=== PATIENT | male | born 1940 | race Caucasian/White ===

== ENCOUNTER → 2018-02-15 | Outpatient (CLI) | payer MEDICARE ==
[~2018-02-15] MED LIST: AMLO5TAB2; AMLO5TAB2 PO; ASP325TEC PO; ATEN25TA PO; ATOR20TA66; ATR20T PO; CLOP75TA; METO-370; NIFE30TA PO; PANT40TA3; PRAS10TA6; TAMS0.4C2; [UNRECOGNIZED DRUG - OTHER]
--- NOTE | 2018-02-15 14:29 | Diagnostic Imaging Report ---
Indication: Bilateral leg pain. IMPRESSION: Segmental pressures bilateral lower extremities was performed. Ankle brachial indices are 1.15 on the right? 1.09 on the left. Dictated by: Dictated on workstation # [id number]
== END ==
LOC: RAD 08:53
PROVIDERS: ATTEND Internal Medicine Interventional Cardiology
DX: M79.604 Pain in right leg (principal); I25.10 Atherosclerotic heart disease of native coronary artery without angina pectoris; I10 Essential (primary) hypertension; E78.5 Hyperlipidemia, unspecified; I71.4 Abdominal aortic aneurysm, without rupture; Z72.0 Tobacco use
CPT/HCPCS: 93922

== ENCOUNTER → 2018-05-17 | Outpatient (CLI) | payer MEDICARE ==
[~2018-05-17] MED LIST changes: -AMLO5TAB2; +AMLO5TAB7; +IOHEXOL 350 MG/ML 100 ML (OMNIPAQUE 350) VIAL IV ONE; +NS 250 ML (IVPB) BAG IV ONE; +RECEIVED CONTRAST (Hold Metformin) IV SCH
[2018-05-17 08:38] LABS: CREATININE SERUM 1.25 MG/DL (0.60-1.30)
--- NOTE | 2018-05-17 10:21 | Diagnostic Imaging Report ---
PROCEDURE: CT angiography of the abdomen with and without contrast. TECHNIQUE: Multiple contiguous axial images were obtained through the abdomen and pelvis after administration of intravenous contrast. MIP reconstructions were made. INDICATION: Aortic stent graft, study ordered for followup however have no previous for comparison. The bifurcated device proximally anchored below the takeoff of the opacified renal arteries and distally extending into the bilateral common iliacs. The device is patent without evidence for endoleak. The peripherally calcified aneurysmal sac measures 6.7 cm in transverse dimension. No perianeurysmal hemorrhage or edema. Lower thoracic aorta is atherosclerotic, tortuous and nonacute. Stenosis at the takeoff of the celiac results in about 50% proximal stenosis. There is mild narrowing of the takeoff of the SMA well less than 50%. There is a patent left renal artery stent with the main right renal artery stenosed by at least 70% at its takeoff and there appears to be an accessory artery to the right renal lower pole small but nonfocal. Calcifications of the right adrenal gland likely reflecting sequelae of a remote inflammatory or hemorrhagic insult, the adrenals otherwise negative. There are bilateral renal cysts greater right without complexity, no enhancing or suspicious renal mass. There are no findings of acute solid or hollow visceral end organ ischemia. There is no ascites, abscess, hematoma or fluid collection. Note is made of gallstones, the liver unremarkable. The spleen and pancreas negative. IMPRESSION: Patent bifurcated stent graft device with no endoleak or aneurysmal rupture, calcified thrombosed sac dimensions above. 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 Renal cyst and cholelithiasis noted. Old calcifications in the right adrenal incidental. Dictated by: Dictated on workstation # [id number]
== END ==
LOC: RAD 08:04
PROVIDERS: ATTEND Internal Medicine Interventional Cardiology
DX: I71.4 Abdominal aortic aneurysm, without rupture (principal); I70.0 Atherosclerosis of aorta; I70.1 Atherosclerosis of renal artery; E27.49 Other adrenocortical insufficiency; K80.20 Calculus of gallbladder without cholecystitis without obstruction; N28.1 Cyst of kidney, acquired; Z95.820 Peripheral vascular angioplasty status with implants and grafts
CPT/HCPCS: 36415; 74175; 82565; 84520

== ENCOUNTER → 2019-01-07 | Outpatient (CLI) | payer MEDICARE ==
[~2019-01-07] MED LIST changes: -AMLO5TAB7; +AMLO5TAB9; -IOHEXOL 350 MG/ML 100 ML (OMNIPAQUE 350) VIAL IV ONE; -NS 250 ML (IVPB) BAG IV ONE; -RECEIVED CONTRAST (Hold Metformin) IV SCH
[2019-01-07 12:31] LABS: BASOPHILS % (AUTO) 1 % (0-10); EOSINOPHILS # (AUTO) 0.1 10^3/uL (0.0-0.3); EOSINOPHILS % (AUTO) 2 % (0-10); HEMATOCRIT 40 % (40-54); HEMOGLOBIN 13.5 G/DL (13.3-17.7); LYMPHOCYTES # (AUTO) 1.6 X 10^3 (1.0-4.0); LYMPHOCYTES % (AUTO) 25 % (12-44); MEAN CORPUSCULAR HEMOGLOBIN 33 PG (25-34); MEAN CORPUSCULAR HGB CONC 34 G/DL (32-36); MEAN CORPUSCULAR VOLUME 98 FL (80-99); MEAN PLATELET VOLUME 9.9 FL (7.4-10.4); MONOCYTES # (AUTO) 0.6 X 10^3 (0.0-1.0); MONOCYTES % (AUTO) 9 % (0-12); NEUTROPHILS # (AUTO) 4.2 X 10^3 (1.8-7.8); NEUTROPHILS % (AUTO) 64 % (42-75); PLATELET COUNT 136 10^3/uL (130-400); WHITE BLOOD COUNT 6.6 10^3/uL (4.3-11.0)
[2019-01-07 12:47] LABS: ALBUMIN 4.1 GM/DL (3.2-4.5); BILIRUBIN,TOTAL 0.5 MG/DL (0.1-1.0); CALCIUM 9.7 MG/DL (8.5-10.1); CREATININE SERUM 1.48 MG/DL (0.60-1.30); POTASSIUM 4.2 MMOL/L (3.6-5.0); TOTAL PROTEIN 7.5 GM/DL (6.4-8.2)
--- NOTE | 2019-01-07 13:21 | Diagnostic Imaging Report ---
Indication: Cough, fatigue and weight loss. Time of exam: 12:32 PM Comparison is made with prior chest from 07/16/2016. The heart size is stable. There is some ectasia and tortuosity of the descending thoracic aorta. The lungs are clear. The pulmonary vascularity is normal. No infiltrate, effusion or pneumothorax is seen. Impression: No acute cardiopulmonary process is detected. Dictated by: Dictated on workstation # [id number]
--- NOTE | 2019-01-07 13:25 | Diagnostic Imaging Report ---
Indication: Fatigue, weight loss, constipation. Aortic stent graft device is present. The bowel gas pattern is normal. There is no abnormal fecal loading. 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 There are atherosclerotic vascular calcifications. Impression: No acute-appearing abnormality. Dictated by: Dictated on workstation # [id number]
== END ==
LOC: LAB 11:50
PROVIDERS: ATTEND Family Medicine
DX: R53.83 Other fatigue (principal); R63.4 Abnormal weight loss; K59.00 Constipation, unspecified
CPT/HCPCS: 36415; 71046; 74018; 80053; 84443; 85025

== ENCOUNTER → 2019-01-28 | Outpatient (CLI) | payer MEDICARE ==
[~2019-01-28] MED LIST changes: +HOLD METFORMIN - RECEIVED CONTRAST 20 ML VIAL IV SCH; +IOHEXOL 350 MG/ML 100 ML (OMNIPAQUE 350) VIAL IV ONE; +NS 100 ML (IVPB) BAG IV ONE
[2019-01-28 09:17] LABS: CREATININE SERUM 1.48 MG/DL (0.60-1.30)
--- NOTE | 2019-01-28 11:03 | Diagnostic Imaging Report ---
PROCEDURE: CT angiography of the abdomen with and without contrast. TECHNIQUE: Multiple contiguous axial images were obtained through the abdomen and pelvis after administration of intravenous contrast. MIP reconstructions were made. Auto Exposure Controls were utilized during the CT exam to meet ALARA standards for radiation dose reduction. INDICATION: Aortic aneurysm repair 3 to 4 years ago. Correlation is made with prior CT from 05/17/2018. FINDINGS: Lung bases are clear. Liver is unremarkable. Small stones within the gallbladder are noted. There is no biliary ductal dilatation. The pancreas and spleen are unremarkable. There are some calcifications in the right adrenal gland. Large cyst involving the right kidney are again noted. Left kidney is unremarkable. Infrarenal abdominal aortic aneurysm treated with bifurcated stent graft is again noted. Both iliac limbs of the stent graft appear to be patent. Excluded aneurysm sac dimension is stable approximately 6.7 cm transverse. Aneurysm sac wall is calcified. There are no definite findings to suggest endoleak. No dickson-aortic fluid collection to suggest rupture or leakage is seen. Visualized bowel loops are normal caliber. There is no ascites. IMPRESSION: 1. Abdominal aortic aneurysm treated with aortic stent graft. Aneurysm sac dimensions are stable since exam from May 2018. There are no findings to suggest endoleak. 2. Cholelithiasis. 3. Right renal cysts. Dictated by: Dictated on workstation # [id number]
== END ==
LOC: RAD 08:37
PROVIDERS: ATTEND Internal Medicine Interventional Cardiology
DX: I71.4 Abdominal aortic aneurysm, without rupture (principal); K80.20 Calculus of gallbladder without cholecystitis without obstruction; N28.1 Cyst of kidney, acquired; Z95.828 Presence of other vascular implants and grafts
CPT/HCPCS: 36415; 74175; 82565; 84520

== ENCOUNTER → 2020-01-28 | Outpatient (CLI) | payer MEDICARE ==
[~2020-01-28] MED LIST changes: -HOLD METFORMIN - RECEIVED CONTRAST 20 ML VIAL IV SCH; -IOHEXOL 350 MG/ML 100 ML (OMNIPAQUE 350) VIAL IV ONE; -METO-370; +METO50TA7; -NS 100 ML (IVPB) BAG IV ONE
[2020-01-28 09:34] LABS: CREATININE SERUM 1.81 MG/DL (0.60-1.30)
--- NOTE | 2020-01-28 11:13 | Diagnostic Imaging Report ---
PROCEDURE: US carotid duplex, bilateral. TECHNIQUE: Multiple real-time grayscale images were obtained over the carotid arteries in various projections, bilaterally. Additional spectral analysis and color Doppler duplex images were also obtained. INDICATION: Carotid artery stenosis, TIA. COMPARISON: None available. FINDINGS: Right carotid circulation: The right common carotid artery is normal in caliber, and there is no significant stenosis. Peak systolic velocity in the right common carotid artery is 50 cm/sec. There is a small amount of atherosclerotic plaque in the carotid bulb and proximal internal carotid artery, which results in less than 50% luminal narrowing by porras scale imaging. The peak systolic velocity in the proximal internal carotid artery is 79 cm/sec. Proximal aspect of the external carotid artery is patent with expected high resistance waveforms, and peak systolic velocity of 74 cm/sec. Left carotid circulation: The left common carotid artery is normal in caliber, and there is no significant stenosis. Peak systolic velocity in the left common carotid artery is 63 cm/sec. There is a small amount of atherosclerotic plaque in the carotid bulb and proximal internal carotid artery, which results in less than 50% luminal narrowing by porras scale imaging. The peak systolic velocity in the proximal internal carotid artery is 70 cm/sec. Proximal aspect of the external carotid artery is patent with expected high resistance waveforms, and peak systolic velocity of 77 cm/sec. Vertebral arteries: Flow in the bilateral vertebral arteries is antegrade. IMPRESSION: 1. Less than 50% stenosis of the proximal internal carotid arteries due to calcified plaquing. 2. Patent vertebral arteries with antegrade flow. Parameters based on the consensus panel Porras-Scale and Doppler ultrasound criteria published May 2003, Radiology, Volume 229. DOPPLER (peak systolic velocity M/S Right Left CCA 0.50 0.63 ICA Proximal 0.36 0.54 ICA Mid 0.65 0.70 ICA Distal 0.79 0.54 RATIO 1.58 1.12 ECA 0.74 0.77 VERT 0.78 0.38 Dictated by: Dictated on workstation # [id number]
== END ==
LOC: RAD 08:03
PROVIDERS: ATTEND Internal Medicine Interventional Cardiology
DX: I65.23 Occlusion and stenosis of bilateral carotid arteries (principal); I71.4 Abdominal aortic aneurysm, without rupture
CPT/HCPCS: 36415; 82565; 84520; 93880

== ENCOUNTER → 2020-02-03 | Outpatient (CLI) | payer MEDICARE ==
[2020-02-03 08:30] LABS: ALBUMIN 3.7 GM/DL (3.2-4.5); POTASSIUM 3.8 MMOL/L (3.6-5.0)
[2020-02-03 08:31] LABS: CALCIUM 8.7 MG/DL (8.5-10.1)
[2020-02-03 08:33] LABS: TOTAL PROTEIN 7.1 GM/DL (6.4-8.2)
[2020-02-03 08:34] LABS: BILIRUBIN,TOTAL 0.6 MG/DL (0.1-1.0)
[2020-02-03 08:36] LABS: CREATININE SERUM 1.52 MG/DL (0.60-1.30)
== END ==
LOC: LAB 08:00
PROVIDERS: ATTEND Internal Medicine Interventional Cardiology
DX: N18.9 Chronic kidney disease, unspecified (principal)
CPT/HCPCS: 36415; 80053

== ENCOUNTER 2020-02-07 08:50 | Day surgery (SDC) | payer MEDICARE ==
[2020-02-07] VITALS (9 sets, daily range): BP systolic 138–179; BP diastolic 75–98
[~2020-02-07] VITALS: Ht 173 cm; Wt 63.0 kg
[2020-02-07] MEDS ORDERED: NS IV 1000 ML 1,000 ML ONE (09:04)
[2020-02-07] MEDS ORDERED: HEParin (CATH LAB) 2,000 ML IV ONE (09:04)
[2020-02-07] MEDS ORDERED: LIDOCAINE 1% INJ 20 ML 20 ML VIAL ONE (09:04)
[2020-02-07] MEDS ORDERED: NS IV 1000 ML 1,000 ML IV SCH ×2 (09:15→13:07)
[2020-02-07 09:34] LABS: MEAN PLATELET VOLUME 9.4 FL (7.4-10.4); RED CELL DISTRIBUTION WIDTH 14.7 % (10.0-14.5); WHITE BLOOD COUNT 6.4 10^3/uL (4.3-11.0)
[2020-02-07] MEDS ORDERED: ASPI-586 PO (09:45)
[2020-02-07 09:49] LABS: INR 0.9 (0.8-1.4)
[2020-02-07 09:57] LABS: ALANINE AMINOTRANSFERASE 11 U/L (0-55); ALBUMIN 3.8 GM/DL (3.2-4.5); ALKALINE PHOSPHATASE 84 U/L (40-136); BILIRUBIN,TOTAL 0.5 MG/DL (0.1-1.0); BUN/CREATININE RATIO 13; CALCIUM 9.2 MG/DL (8.5-10.1); CARBON DIOXIDE 24 MMOL/L (21-32); CHLORIDE 109 MMOL/L (98-107); CREATININE SERUM 1.51 MG/DL (0.60-1.30); GFR ESTIMATED 45; GLUCOSE 96 MG/DL (70-105); HDL CHOLESTEROL 44 MG/DL (40-60); POTASSIUM 4.3 MMOL/L (3.6-5.0); SODIUM 141 MMOL/L (135-145); TOTAL PROTEIN 7.4 GM/DL (6.4-8.2); TRIGLYCERIDES 108 MG/DL (<150); VLDL CHOLESTEROL 22 MG/DL (5-40)
--- OUTSIDE RECORDS SUMMARY | 2020-02-07 11:09 | XMS REPORT | Continuity of Care Document ---
Author Organization Unknown Address Unknown Phone Unavailable Allergies Active Description Code Type Severity Reaction Onset Reported/Identified Relationship to Patient Clinical Status Yes No Allergy Information Available [id number] Drug Allergy Unknown N/A 010 Yes No Known Allergies No Known Allergies Drug Allergy Unknown N/A 03/26/2014 Medications There is no data. 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, RIGHT EAR 07/16/2016 MICHELLE PARKS, NAVI Peralta Ot 722.5 2 LUMB/LUMBOSAC DISC DEGEN 07/16/2016 SARAH LUCAS DOI Ot E78.5 HYPERLIPIDEMIA, UNSPECIFIED 07/16/2016 SARAH LUCAS DOI Ot F17.29 0 NICOTINE DEPENDENCE, OTHER TOBACCO PRODU 07/16/2016 SARAH LUCAS DOI Ot H53.2 DIPLOPIA 07/16/2016 LANCE STOUT BALBINA Ot I10 ESSENTIAL (PRIMARY) HYPERTENSION 07/16/2016 LANCE STOUT BALBINA Ot I25.10 ATHSCL HEART DISEASE OF [place] CORONARY 07/16/2016 LANCE STOUT BALBINA Ot N40.0 BENIGN PROSTATIC HYPERPLASIA WITHOUT LOW 07/16/2016 BALBINA LUCAS DO Ot R42 DIZZINESS AND GIDDINESS 07/16/2016 BALBINA LUCAS DO Ot R79.1 ABNORMAL COAGULATION PROFILE 07/16/2016 BALBINA LUCAS DO Ot Z86.73 PRSNL HX OF TIA (TIA), AND CEREB INFRC W 07/16/2016 BALBINA LUCAS DO Ot Z95.5 PRESENCE OF CORONARY ANGIOPLASTY IMPLANT 03/16/2018 Ot E78.5 HYPE RLIPIDEMIA, UNSPECIFIED 03/16/2018 Ot I10 ESSENT IAL (PRIMARY) HYPERTENSION 03/16/2018 Ot I25.10 ATH SCL HEART DISEASE OF [place] CORONARY 03/16/2018 Ot I71.4 ABDO ADOLFO AORTIC ANEURYSM, WITHOUT RUPTU 03/16/2018 Ot M79.604 PA IN IN RIGHT LEG 03/16/2018 Ot Z72.0 TOBA SHOE CEMENTER USE 05/21/2018 Keysha ROMERO MD Ot E27.49 OTHER ADRENOCORTICAL INSUFFICIENCY 05/21/2018 Keysha ROMERO MD Ot I70 .0 ATHEROSCLEROSIS OF AORTA 05/21/2018 Keysha ROMERO MD Ot I70 .1 ATHEROSCLEROSIS OF RENAL ARTERY 05/21/2018 Keysha ROMERO MD Ot I71 .4 ABDOMINAL AORTIC ANEURYSM, WITHOUT RUPTU 05/21/2018 Keysha ROMERO MD Ot K80.20 CALCULUS OF GALLBLADDER W/O CHOLECYSTITI 05/21/2018 Keysha ROMERO MD Ot N28 .1 CYST OF KIDNEY, ACQUIRED 05/21/2018 Keysha ROMERO MD Ot Z95.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 82 CHRONIC FATIGUE, UNSPECIFIED 01/13/2019 FAIZAN CALIX MD, Ot K59. 00 CONSTIPATION, UNSPECIFIED 01/13/2019 FAIZAN CALIX MD, Ot R53. 83 OTHER FATIGUE 01/13/2019 FAIZAN CALIX MD, Ot R63. 4 ABNORMAL WEIGHT LOSS 01/31/2019 Keysha ROMERO MD Ot I71 .4 ABDOMINAL AORTIC ANEURYSM, WITHOUT RUPTU 01/31/2019 Keysha ROMERO MD Ot K80.20 CALCULUS OF GALLBLADDER W/O CHOLECYSTITI 01/31/2019 Keysha ROMERO MD Ot N28 .1 CYST OF KIDNEY, ACQUIRED 01/31/2019 Keysha ROMERO MD Ot Z95.828 PRESENCE OF OTHER VASCULAR IMPLANTS AND 02/03/2019 Keysha ROMERO MD Ot I71 .4 ABDOMINAL AORTIC ANEURYSM, WITHOUT RUPTU 02/03/2019 Keysha ROMERO MD Ot K80.20 CALCULUS OF GALLBLADDER W/O CHOLECYSTITI 02/03/2019 Keysha ROMERO MD Ot N28 .1 CYST OF KIDNEY, ACQUIRED 02/03/2019 Keysha ROMERO MD Ot Z95.828 PRESENCE OF OTHER VASCULAR IMPLANTS AND 02/04/2019 FAIZAN CALIX MD Ot K59. 00 CONSTIPATION, UNSPECIFIED 02/04/2019 FAIZAN CALIX MD Ot R53. 83 OTHER FATIGUE 02/04/2019 FAIZAN CALIX MD Ot R63. 4 ABNORMAL WEIGHT LOSS 02/08/2019 FAIZAN CALIX MD Ot K59. 00 CONSTIPATION, UNSPECIFIED 02/08/2019 FAIZAN CALIX MD Ot R53. 83 OTHER FATIGUE 02/08/2019 FAIZAN CALIX MD Ot R63. 4 ABNORMAL WEIGHT LOSS 02/22/2019 Keysha ROMERO MD Ot I71 .4 ABDOMINAL AORTIC ANEURYSM, WITHOUT RUPTU 02/22/2019 Keysha ROMERO MD Ot K80.20 CALCULUS OF GALLBLADDER W/O CHOLECYSTITI 02/22/2019 Keysha ROMERO MD, Ot N28 .1 CYST OF KIDNEY, ACQUIRED 02/22/2019 Keysha ROMERO MD, Ot Z95.828 PRESENCE OF OTHER VASCULAR IMPLANTS AND 03/01/2019 Keysha ROMERO MD, Ot I71 .4 ABDOMINAL AORTIC ANEURYSM, WITHOUT RUPTU 03/01/2019 Keysha ROMERO MD, Ot K80.20 CALCULUS OF GALLBLADDER W/O CHOLECYSTITI 03/01/2019 Keysha ROMERO MD, Ot N28 .1 CYST OF KIDNEY, ACQUIRED 03/01/2019 Keysha ROMERO MD, Ot Z95.828 PRESENCE OF OTHER VASCULAR IMPLANTS AND 01/27/2020 Keysha ROMERO MD, Ot G45 .9 TRANSIENT CEREBRAL ISCHEMIC ATTACK, UNSP 01/28/2020 Keysha ROMERO MD, Ot G45 .9 TRANSIENT CEREBRAL ISCHEMIC ATTACK, UNSP 02/04/2020 Keysha ROMERO MD, Ot N18 .9 CHRONIC KIDNEY DISEASE, UNSPECIFIED Procedures There is no data. Results Test Result Range METABOLIC PANEL, BASIC - 11/03/15 16:55 POTASSIUM 4.5 mmol/L 3.5-5.3 EST GFR (MDRD) 54 mL/min > 59 ANION GAP 9 mmol/L 5-15 GLUCOSE 94 mg/dL 70-99 CALCIUM 9.3 mg/dL 8.5-10.1 BLOOD UREA NITROGEN 20 mg/dL 7-20 CREATININE 1.3 mg/dL 0.7-1.3 SODIUM 148 mmol/L 135-148 CHLORIDE 109 mmol/L 98-110 CARBON DIOXIDE 30 mmol/L 21-32 Complete blood count (CBC) with automate d white blood cell (WBC) differential - 07/15/16 16:42 Blood leukocytes automated count (number/volume) 5.9 10*3/uL 4.3-11.0 Blood erythrocytes automated count (number/volume) 3.99 10*6/uL 4.35-5.85 Venous blood hemoglobin measurement (mass/volume) 13.0 g/dL 13.3-17.7 Blood hematocrit (volume fraction) 39 % 40-54 Automated erythrocyte mean corpuscular volume 98 [ foz_us] 80-99 Automated erythrocyte mean corpuscular h emoglobin (mass per erythrocyte) 33 pg 25-34 Automated erythrocyte mean corpuscular h emoglobin concentration measurement (mass/volume) 33 g/dL 32-36 Automated erythrocyte distribution width ratio 13. 2 % 10.0- 14.5 Automated blood platelet count (count/volume) 197 10*3/uL 130-400 Automated blood platelet mean volume measurement 9.6 [foz_us] 7.4-10.4 Automated blood neutrophils/100 leukocytes 56 % 42-75 Automated blood lymphocytes/100 leukocytes 30 % 12-44 Blood monocytes/100 leukocytes 10 % 0-12 Automated blood eosinophils/100 leukocytes 3 % 0-10 Automated blood basophils/100 leukocytes 1 % 0-10 Blood neutrophils automated count (number/volume) 3.3 10*3 1.8-7.8 Blood lymphocytes automated count (number/volume) 1.8 10*3 1.0-4.0 Blood monocytes automated count (number/volume) 0. 6 10*3 0.0-1.0 Automated eosinophil count 0.2 10*3/uL 0 .0-0.3 Automated blood basophil count (count/volume) 0.0 10*3/uL 0.0-0.1 PT panel in platelet poor plasma by coag ulation assay - 07/15/16 16:42 Prothrombin time (PT) in platelet poor plasma by coagu lation assay 12.2 s 12.2-14.7 INR in platelet poor plasma or blood by coagulation as say 0.9 0.8-1.4 Activated partial thromboplastin time (a PTT) in platelet poor plasma bycoagulation assay - 07/15/16 16:42 Activated partial thromboplastin time (a PTT) in platelet poor plasma bycoagulation assay 29 s 24-35 Comprehensive metabolic panel - 07/15/16 16:42 Serum or plasma sodium measurement (moles/volume) 137 mmol/L 135-145 Serum or plasma potassium measurement (moles/volume) 3.8 mmol/L 3.6-5.0 Serum or plasma chloride measurement (moles/volume) 103 mmol/L 98-107 Carbon dioxide 26 mmol/L 21-32 Serum or plasma anion gap determination (moles/volume) 8 mmol/L 5-14 Serum or plasma urea nitrogen measurement (mass/volume ) 19 mg/dL 7-18 Serum or plasma creatinine measurement (mass/volume) 1.44 mg/dL 0.60-1.30 Serum or plasma urea nitrogen/creatinine mass ratio 13 NRG Serum or plasma creatinine measurement w ith calculation of estimated glomerular filtration rate 48 NRG Serum or plasma glucose measurement (mass/volume) 96 mg/dL 70-105 Serum or plasma calcium measurement (mass/volume) 9.2 mg/dL 8.5-10.1 Serum or plasma total bilirubin measurement (mass/volu me) 0.4 mg/dL 0.1-1.0 Serum or plasma alkaline phosphatase josie surement (enzymatic activity/volume) 86 U/L 40-136 Serum or plasma aspartate aminotransfera se measurement (enzymatic activity/volume) 17 U/L 5-34 Serum or plasma alanine aminotransferase measurement (enzymatic activity/volume) 13 U/L 0-55 Serum or plasma protein measurement (mass/volume) 7.2 g/dL 6.4-8.2 Serum or plasma albumin measurement (mass/volume) 4.0 g/dL 3.2-4.5 Serum or plasma troponin i.cardiac measu rement (mass/volume) - 07/15/16 16:42 Serum or plasma troponin i.cardiac measurement (mass/v olume) < ng/mL <0.30 Fibrin D-dimer FEU measurement in platel et poor plasma (mass/volume) - 07/15/16 16:42 Fibrin D-dimer FEU measurement in platelet poor plasma (mass/volume) 12.69 ug/mL 0.00-0.49 Serum or plasma ethanol measurement (mas s/volume) - 07/15/16 16:42 Serum or plasma ethanol measurement (mass/volume) < mg/dL <10 Capillary blood glucose measurement by g lucometer (mass/volume) - 07/15/16 17:25 Capillary blood glucose measurement by glucometer (mas s/volume) 92 mg/dL 70-110 Complete urinalysis with reflex to cultu re - 07/15/16 18:41 Urine color determination YELLOW NRG Urine clarity determination CLEAR NR G Urine pH measurement by test strip 7 5-9 Specific gravity of urine by test strip 1.010 1.016-1.022 Urine protein assay by test strip, semi-quantitative 1+ NEGATIVE Urine glucose detection by automated test strip NE GATIVE NEGATIVE Erythrocytes detection in urine sediment by light micr oscopy 3+ NEGATIVE Urine ketones detection by automated test strip NE GATIVE NEGATIVE Urine nitrite detection by test strip NEGATIVE NEGATIVE Urine total bilirubin detection by test strip NEGA TIVE NEGATIVE Urine urobilinogen measurement by automated test strip (mass/volume) NORMAL NORMAL Urine leukocyte esterase detection by dipstick NEG ATIVE NEGATIVE Automated urine sediment erythrocyte cou nt by microscopy (number/high power field) [HPF] NRG Automated urine sediment leukocyte count by microscopy (number/high power field) NONE NRG Bacteria detection in urine sediment by light microsco py MODERATE NRG Crystals detection in urine sediment by light microsco py NONE NRG Casts detection in urine sediment by light microscopy NONE NRG Mucus detection in urine sediment by light microscopy NEGATIVE NRG Complete urinalysis with reflex to culture NO NRG Methicillin resistant Staphylococcus aur eus (MRSA) screening culture - 07/15/16 22:40 Methicillin resistant Staphylococcus aureus (MRSA) scr eening culture NEG NRG Complete blood count (CBC) with automate d white blood cell (WBC) differential - 07/16/16 04:18 Blood leukocytes automated count (number/volume) 5.5 10*3/uL 4.3-11.0 Blood erythrocytes automated count (number/volume) 3.60 10*6/uL 4.35-5.85 Venous blood hemoglobin measurement (mass/volume) 11.9 g/dL 13.3-17.7 Blood hematocrit (volume fraction) 36 % 40-54 Automated erythrocyte mean corpuscular volume 100 [foz_us] 80-99 Automated erythrocyte mean corpuscular h emoglobin (mass per erythrocyte) 33 pg 25-34 Automated erythrocyte mean corpuscular h emoglobin concentration measurement (mass/volume) 33 g/dL 32-36 Automated erythrocyte distribution width ratio 13. 5 % 10.0- 14.5 Automated blood platelet count (count/volume) 175 10*3/uL 130-400 Automated blood platelet mean volume measurement 10.2 [foz_us] 7.4-10.4 Automated blood neutrophils/100 leukocytes 46 % 42-75 Automated blood lymphocytes/100 leukocytes 37 % 12-44 Blood monocytes/100 leukocytes 12 % 0-12 Automated blood eosinophils/100 leukocytes 5 % 0-10 Automated blood basophils/100 leukocytes 1 % 0-10 Blood neutrophils automated count (number/volume) 2.5 10*3 1.8-7.8 Blood lymphocytes automated count (number/volume) 2.0 10*3 1.0-4.0 Blood monocytes automated count (number/volume) 0. 7 10*3 0.0-1.0 Automated eosinophil count 0.3 10*3/uL 0 .0-0.3 Automated blood basophil count (count/volume) 0.1 10*3/uL 0.0-0.1 Whole blood basic metabolic panel - 06/18 08/01 04:18 Serum or plasma sodium measurement (moles/volume) 139 mmol/L 135-145 Serum or plasma potassium measurement (moles/volume) 3.7 mmol/L 3.6-5.0 Serum or plasma chloride measurement (moles/volume) 107 mmol/L 98-107 Carbon dioxide 22 mmol/L 21-32 Serum or plasma anion gap determination (moles/volume) 10 mmol/L 5-14 Serum or plasma urea nitrogen measurement (mass/volume ) 16 mg/dL 7-18 Serum or plasma creatinine measurement (mass/volume) 1.12 mg/dL 0.60-1.30 Serum or plasma urea nitrogen/creatinine mass ratio 14 NRG Serum or plasma creatinine measurement w ith calculation of estimated glomerular filtration rate > NRG Serum or plasma glucose measurement (mass/volume) 82 mg/dL 70-105 Serum or plasma calcium measurement (mass/volume) 8.8 mg/dL 8.5-10.1 Serum or plasma phosphate measurement (m ass/volume) - 07/16/16 04:18 Serum or plasma phosphate measurement (mass/volume) 2.7 mg/dL 2.3-4.7 Magnesium - 07/16/16 04:18 Magnesium 1.9 mg/dL 1.8-2.4 Complete blood count (CBC) with automate d white blood cell (WBC) differential - 01/07/19 12:25 Blood leukocytes automated count (number/volume) 6.6 10*3/uL 4.3-11.0 Blood erythrocytes automated count (number/volume) 4.09 10*6/uL 4.35-5.85 Venous blood hemoglobin measurement (mass/volume) 13.5 g/dL 13.3-17.7 Blood hematocrit (volume fraction) 40 % 40-54 Automated erythrocyte mean corpuscular volume 98 [ foz_us] 80-99 Automated erythrocyte mean corpuscular h emoglobin (mass per erythrocyte) 33 pg 25-34 Automated erythrocyte mean corpuscular h emoglobin concentration measurement (mass/volume) 34 g/dL 32-36 Automated erythrocyte distribution width ratio 14. 0 % 10.0- 14.5 Automated blood platelet count (count/volume) 136 10*3/uL 130-400 Automated blood platelet mean volume measurement 9.9 [foz_us] 7.4-10.4 Automated blood neutrophils/100 leukocytes 64 % 42-75 Automated blood lymphocytes/100 leukocytes 25 % 12-44 Blood monocytes/100 leukocytes 9 % 0-12 Automated blood eosinophils/100 leukocytes 2 % 0-10 Automated blood basophils/100 leukocytes 1 % 0-10 Blood neutrophils automated count (number/volume) 4.2 10*3 1.8-7.8 Blood lymphocytes automated count (number/volume) 1.6 10*3 1.0-4.0 Blood monocytes automated count (number/volume) 0. 6 10*3 0.0-1.0 Automated eosinophil count 0.1 10*3/uL 0 .0-0.3 Automated blood basophil count (count/volume) 0.0 10*3/uL 0.0-0.1 Comprehensive metabolic panel - 01/07/19 12:25 Serum or plasma sodium measurement (moles/volume) 140 mmol/L 135-145 Serum or plasma potassium measurement (moles/volume) 4.2 mmol/L 3.6-5.0 Serum or plasma chloride measurement (moles/volume) 106 mmol/L 98-107 Carbon dioxide 24 mmol/L 21-32 Serum or plasma anion gap determination (moles/volume) 10 mmol/L 5-14 Serum or plasma urea nitrogen measurement (mass/volume ) 20 mg/dL 7-18 Serum or plasma creatinine measurement (mass/volume) 1.48 mg/dL 0.60-1.30 Serum or plasma urea nitrogen/creatinine mass ratio 14 NRG Serum or plasma creatinine measurement w ith calculation of estimated glomerular filtration rate 46 NRG Serum or plasma glucose measurement (mass/volume) 90 mg/dL 70-105 Serum or plasma calcium measurement (mass/volume) 9.7 mg/dL 8.5-10.1 Serum or plasma total bilirubin measurement (mass/volu me) 0.5 mg/dL 0.1-1.0 Serum or plasma alkaline phosphatase josie surement (enzymatic activity/volume) 77 U/L 40-136 Serum or plasma aspartate aminotransfera se measurement (enzymatic activity/volume) 21 U/L 5-34 Serum or plasma alanine aminotransferase measurement (enzymatic activity/volume) 22 U/L 0-55 Serum or plasma protein measurement (mass/volume) 7.5 g/dL 6.4-8.2 Serum or plasma albumin measurement (mass/volume) 4.1 g/dL 3.2-4.5 CALCIUM CORRECTED 9.6 mg/dL 8.5-10.1 THYROID STIMULATING HORMONE - 01/07/19 1 2:25 THYROID STIMULATING HORMONE 0.96 u[iU]/mL 0.35-4.94 [id number] - 01/28/19 08:45 Serum or plasma urea nitrogen measurement (mass/volume ) 21 mg/dL 7-18 Serum or plasma creatinine measurement (mass/volume) 1.48 mg/dL 0.60-1.30 Serum or plasma urea nitrogen/creatinine mass ratio 14 NRG Serum or plasma creatinine measurement w ith calculation of estimated glomerular filtration rate 46 [facility] [id number] - 01/28/20 09:10 Serum or plasma urea nitrogen measurement (mass/volume ) 25 mg/dL 7-18 Serum or plasma creatinine measurement (mass/volume) 1.81 mg/dL 0.60-1.30 Serum or plasma urea nitrogen/creatinine mass ratio 14 NRG Serum or plasma creatinine measurement w ith calculation of estimated glomerular filtration rate 36 NRG Radiology Report from [facility] on 2015 09:34:00 DIAGNOSTIC THIAGO GING REPORT [facility] - [address] [place] [address] PHONE #: [phone] FAX #: [phone] Name: LAWRENCE DEJESUS Loc: DIANA Radiology No: [id number] : 1940 Age: 75 Sex: M Status: REG CLI Unit No: [id number] Phys: Amena Lebron MD Acct: [id number] Reason For Exam: UNSTABLE BALANCE Exam Date: 11/04/2015 EXAMS: CPT CODE: [id number] MRA HEAD W/O CONTR [id number] REASON FOR EXAM: Unstable balance COMPARISON: None TECHNIQUE: 3D [id number] images of the [place] were performed without contrast. Both the source images and the MIP reformatted images were reviewed. FINDINGS: Both internal carotid arteries are normal in course and caliber. The anterior and middle cerebral arteries demonstrate normal flow related enhancement and are symmetric. There is no significant stenosis or large aneurysm. The anterior communicating artery is well seen. The bilateral posterior communicating arteries are not well seen. The vertebral and basilar arteries are unremarkable. The vertebral arteries are codominant. Both posterior cerebral arteries are unremarkable. There is no evidence of aneurysm, significant stenosis or vascular malformation seen. IMPRESSION: Negative MRA of the [place]. No evidence of significant stenosis or aneurysm. Report called to Dr. Lepe at 9:25 AM on 11/04/2015. at 0929 Reported and signed by: HYACINTH VELA MD CC: Amena Lepe MD; Navi Syed MD Technologist: NAGA GARCIA Transcribed Date/Time: 11/04/2015 (928)Sourcing Intern: [email or web address] Printed Date/Time: 11/04/2015 (0927) BATCH NO: N/A PAGE 1 Signed Report Radiology Report from [facility] on 2015 09:34:00 DIAGNOSTIC THIAGO GING [facility] [address] [facility] [place] [address] PHONE #: [phone] FAX #: [phone] Name: LAWRENCE DEJESUS Loc: DIANA Radiology No: [id number] : 1940 Age: 75 Sex: M Status: REG CLI Unit No: [id number] Phys: Amena Lebron MD Acct: [id number] Reason For Exam: UNSTABLE BALANCE/WEAKNESS Exam Date: 11/04/2015 EXAMS: CPT CODE: [id number] MRI BRAIN W W/O 82212 REASON FOR EXAM: Unstable balance, weakness COMPARISON: None TECHNIQUE: Routine pre and postcontrast enhanced multiplanar, multisequence MRI of the head was obtained. FINDINGS: The ventricles and cortical sulci are prominent, compatible with diffuse parenchymal volume loss. There is no midline shift or mass effect identified. There is a punctate area of susceptibility artifact in the anterior right haley which may be due to prior microhemorrhage or small cavernoma. There is no significant surrounding edema to suggest acute hemorrhage. No other intraparenchymal or extraaxial hemorrhage or fluid collection is identified. There is abnormal diffusion restriction within the left haley extending towards the midline with minimal decreased ADC signal suggesting acute to subacute pontine infarct. There are focal and confluent areas of abnormal T2 bright signal in the periventricular and subcortical white matter, compatible with small vessel ischemic change. There is no other focal parenchymal abnormality seen. There is no abnormal enhancement seen after the administration of gadolinium. The midline craniocervical anatomy is unremarkable. The major expected intracranial flow voids are seen. There are no focal calvarial lesions. Visualized paranasal sinuses are clear. IMPRESSION: 1. 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 2. Chronic small vessel ischemic changes in the periventricular and subcortical white matter. 3. Generalized parenchymal volume loss. 4. Punctate areas susceptibility artifact in the anterior right haley which may be due to prior microhemorrhage or small cavernoma. Report called to Dr. Lepe at 9:25 AM on 11/04/2015. PAGE 1 Signed Report (CONTINUED) [facility]STIC [facility]ING [facility] [address] [place] [address] PHONE #: [phone] FAX #: [phone] Name: LAWRENCE DEJESUS Loc: [facility] Radiology No: [id number] : 1940 Age: 75 Sex: M Status: REG CLI Unit No: [id number] Phys: Amena Lebron MD Acct: [id number] Reason For Exam: UNSTABLE BALANCE/WEAKNESS Exam Date: 11/04/2015 --------- EXAMS: CPT CODE: [id number] MRI BRAIN W W/O 65190 <Continued> at 0929 Reported and signed by: HYACINTH VELA MD CC: Amena Lepe MD; Navi Syed MD Technologist: NAGA GARCIA Transcribed Date/Time: 11/04/2015 (928)Sourcing Intern: [email or web address] Printed Date/Time: 11/04/2015 (7937) BATCH NO: N/A PAGE 2 Signed Report Encounters ACCT No. Visit Date/Time Discharge Status Pt. Type Provider Facility Loc./Unit Complaint [id number] 11/04/2015 06:57:00 06:57:00 DIS Outpatient Sherley PARKS, Amena Navarro [facility] E.DIAMANTE [id number] 11/03/2015 16:17:00 16:17:00 DIS Outpatient Navdeep PARKS, Erich Sellers [facility] E.LAB [id number] 02/03/2020 08:00:00 23:59:59 CLS Outpatient Keysha ROMERO MD [facility] LAB N18.9 [id number] 01/28/2020 08:03:00 23:59:59 CLS Outpatient Keysha ROMERO MD [facility] RAD AAA,TIA [id number] 04/24/2019 10:56:00 23:59:59 CLS Preadmit Keysha ROMERO MD [facility] RAD CAROTID ARTERY STENOSIS [id number] 01/28/2019 08:37:00 23:59:59 CLS Outpatient Keysha ROMERO MD [facility] RAD AAA [id number] 01/07/2019 11:50:00 23:59:59 CLS Outpatient FAIZAN CALIX MD [facility] LAB CMP,CBC,TSH,CHEST X-RAY ,ABD X-RAY [id number] 05/17/2018 08:04:00 23:59:59 CLS Outpatient Keysha ROMERO MD [facility] RAD AAA [id number] 07/15/2016 18:50:00 14:00:00 DIS Inpatient BALBINA LUCAS DO, [facility] ICU DIPLOPIA,DISEQUILIBRIUM ,ELEVATED D- DIMER [id number] 01/30/2016 15:08:00 016 16:30:00 DIS Emergency AMENA FERRIS MD [facility] ER RT EAR RINGING [id number] 10/31/2015 15:25:00 016 18:33:00 DIS Emergency LOVE PARKS, CED Ramirez [facility] ER DIZZINESS/IRR PULSE [id number] 03/18/2014 09:33:00 014 23:59:59 CLS Outpatient MICHELLE PARKS, NAVI Peralta [facility] RAD LBP, RADIATING LEFT BRIDGETTE IN/LEG [id number] 02/06/2020 13:00:00 P EN Karol ROMERO MD, Keysha LEMUS [facility] CATH CHRONIC MESENTERIC ISCHEMIA, HTN [id number] 02/15/2018 08:53:00 Document Registration [id number] 07/16/2016 08:03:00 Document Registration
[2020-02-07] MEDS ORDERED: fentaNYL INJECTION 100 MCG/2 ML AMP ONE (11:40)
[2020-02-07] MEDS ORDERED: MIDAZOLAM 5 MG/5 ML (VERSED) VIAL ONE (11:40)
--- NOTE | 2020-02-07 11:46 | Cardiac Procedure Note-CS/ASA ---
Pre-Procedure Note Pre-Op Procedure Note H&P Reviewed The H&P was reviewed, patient examined and no changes noted. Date H&P Reviewed: Feb 07, 2020 Time H&P Reviewed: 11:45 Conscious Sedation Pre-Proced Time 11:45 ASA Score 3 For ASA 3 and 4: Consider anesthesia and medical clearance. Also, for patients with a history of failed moderate sedation consider anesthesia. Airway Lungs Heart ASA score ASA 1: a normal healthy patient ASA 2: a patient with a mild systemic disease (mid diabetes, controlled hypertension, obesity ASA 3: a patient with a severe systemic disease that limits activity (angina, COPD, prior Myocardial infarction) ASA 4: a patient with an incapacitating disease that is a constant threat to life (CHF, renal failure) ASA 5: a moribund patient not expected to survive 24 hrs. (ruptured aneurysm) ASA 6: a declared brain- patient whose organs are being harvested. For emergent operations, add the letter E after the classification Mallampati Classification Grade 1 Sedation Plan Analgesia, Amnesia, Plan communicated to team members, Discussed options with patient/fam, Discussed risks with patient/fam The patient is an appropriate candidate to undergo the planned procedure, sedation, and anesthesia. The patient immediately re-assessed prior to indication. Keysha ROMERO MD Feb 07, 2020 11:46
--- NOTE | 2020-02-07 13:07 | Coronary Angiography Report ---
Peripheral Angiography Abdominal aortogram and peripheral angiography DATE OF SERVICE: 02/07/20 PRIMARY PHYSICIAN: Robin Leiva MD PERFORMING INTERVENTIONALIST: Dr. Ermias Torrez INDICATION: Chronic mesenteric ischemia. Severe hypertension Previous aortic graft. PREOPERATIVE INDICATION: Chronic mesenteric senior. Severe hypertension. Previous aortic graft. 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 Patent celiac trunk. 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 No significant disease of the aorta graft. Mild diffuse disease bilaterally. HISTORY: This is a 79-year-old gentleman with history of abdominal discomfort, loss of appetite and weight loss. Chronic mesenteric ischemia is suspected. Patient also has severe hypertension with mild renal insufficiency. Renal artery stenosis needs to be ruled out. PROCEDURE PERFORMED: 1. Abdominal aortogram with bilateral lower extremity runoff. 2. Selective renal angiogram. First order catheter placement. 3. Selective celiac angiogram. First order catheter placement. 4. Selective superior mesenteric artery angiogram. First order catheter placement. SPECIMENS: None. ANESTHESIA: Conscious sedation. BLOOD LOSS: 20 mL. COMPLICATIONS: None. CONTRAST USED: 120 ml. FLUOROSCOPY DOSE: 806 Mgy. FLUOROSCOPY TIME: 10 minutes. ANTICOAGULATION: none. DESCRIPTION OF PROCEDURE: The patient was brought to the electronic lab technician after informed consent was taken. All the risks and complications were explained in detail. The patient was draped and prepped in the usual sterile fashion. Access was gained in the right femoral artery with a 5 Latvian sheath. We advanced a pigtail catheter over a 035 wire into the mid abdominal aorta. Abdominal aortogram was performed. The pigtail catheter was taken out and we went in with an THIAGO catheter and a selective angiogram of the left renal artery was performed. The right renal artery could not be visualized therefore right renal artery angiogram was not done. We then exchanged to a JR4 catheter and perform selective angiogram of the celiac trunk followed by a selective angiogram of the superior mesenteric artery. We then exchanged with a pigtail catheter and placed the tip of the pigtail catheter in the aortic graft which is just below the bilateral renal arteries. A distal abdominal aortogram with bilateral lower extremity runoff was performed. 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 Patent celiac trunk. 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 No significant disease of the aorta graft. Mild diffuse disease bilaterally including bilateral common iliac artery, external iliac artery, common femoral artery and superficial femoral artery. No severe disease noted. CONCLUSION: 1. 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 2. No significant mesenteric atherosclerotic disease. 3. Patent aortic graft. 4. Aggressive IV fluids. Continue secondary prevention measures. Ermias Torrez MD, FACP, FACC, [facility] Vascular Medicine and Endovascular Interventions Keysha TORREZ MD Feb 07, 2020 13:07
--- NOTE | 2020-02-07 13:11 | Discharge Inst-Post CATH ---
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 Patent celiac trunk. 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 No significant disease of the aorta graft. Mild diffuse disease bilaterally. Post Cardiac Cath/EP D/C Inst Follow Up/Plan Dr. Torrez in 4 weeks. <b>CARDIAC CATH/EP PROCEDURE DISCHARGE INSTRUCTIONS</b> ACTIVITY * Go Home directly and rest. * Limit activity of the leg (or wrist if it was used) for 7 days including aerobics, swimming, jogging, bicycling, etc. * Restrict stair-climbing for 7 days if possible, if not, climb up with your non-cath leg, then bring together on the same step. * Avoid lifting, pushing, pulling or excessive movement of the affected extremity for 7 days. * Customary sexual activity may be resumed after 2 days-use caution not to use a position that strains or causes pain to the affected extremity. * No driving for 24 hours. * NO SMOKING. * Avoid straining for bowel movements for 7 days. * Gentle walking on level ground is allowed. * Returning to work will depend on the type of procedure and the results. Your doctor will discuss this with you. CALL YOUR DOCTOR FOR ANY OF THE FOLLOWING: *If bleeding from the puncture site occurs- Apply gentle pressure to site with clean cloth and call your doctor or EMS. * If a knot or lump forms under the skin, increases in size, or causes pain. * If bruising appears to be worsening or moving further down your leg instead of disappearing. * Temperature above 101 F. CARE OF YOUR GROIN INCISION; * Bruising or purple discoloration of the skin near the puncture site is common. * You may shower only, no bathtub bathing for 5 days. Be careful to avoid slipping as your leg may feel stiff. * If a closure device was used on your femoral artery, please see the attached guide regarding care of the device and your leg. * Leave dressing on FOR 24 hours. CARE OF YOUR WRIST INCISION; * Bruising or purple discoloration of the skin near the puncture site is common. * You may shower. * DO NOT submerge wrist. * Leave dressing on FOR 24 hours. Keysha TORREZ MD Feb 07, 2020 13:11
--- NOTE | 2020-02-07 13:14 | Cardiology Discharge Summary ---
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 Patent celiac trunk. 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 No significant disease of the aorta graft. Mild diffuse disease bilaterally. Chief Complaint/HPI Chief Complaint/HPI Abdominal discomfort, weight loss, loss of appetite- chronic mesenteric ischemia is suspected. Severe hypertension Discharge Summary Procedures Abdominal aortogram with bilateral lower extremity runoff. Selective angiogram of the renal arteries and mesenteric arteries. 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 Patent celiac trunk. 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 No significant disease of the aorta graft. Mild diffuse disease bilaterally. Discharge Physical Examination Cardiovascular examination was normal. Hospital Course Was the Problem List Reviewed?: Yes Unremarkable. Pending Labs Laboratory Tests 02/07/20 09:23: White Blood Count 6.4, Red Blood Count 4.02, Hemoglobin 13.0, Hematocrit 39, Mean Corpuscular Volume 97, Mean Corpuscular Hemoglobin 32, Mean Corpuscular Hemoglobin Concent 34, Red Cell Distribution Width 14.7, Platelet Count 161, Mean Platelet Volume 9.4, Prothrombin Time 13.0, INR Comment 0.9, Activated Partial Thromboplast Time 29, Sodium Level 141, Potassium Level 4.3, Chloride Level 109, Carbon Dioxide Level 24, Anion Gap 8, Blood Urea Nitrogen 19, Creatinine 1.51, Estimat Glomerular Filtration Rate 45, BUN/Creatinine Ratio 13, Glucose Level 96, Calcium Level 9.2, Corrected Calcium 9.4, Total Bilirubin 0.5, Aspartate Amino Transf (AST/SGOT) 14, Alanine Aminotransferase (ALT/SGPT) 11, Alkaline Phosphatase 84, Total Protein 7.4, Albumin 3.8, Triglycerides Level 108, Total Cholesterol [Pending], Cholesterol Level , LDL Cholesterol Direct [Pending], VLDL Cholesterol 22, HDL Cholesterol 44 Discussion & Recommendations Discussion Continue same medication. Aggressive secondary prevention measures. Follow up appt.: Dr. Torrez in 4 weeks. Dicharge Diet: Cardiac Diet Activity as Tolerated: Yes Home Medications Reviewed patient Home Medication Reconciliation performed by pharmacy medication reconciliations technician telecommunication systems and/or nursing. Patients Allergies have been reviewed. Discharge Home Medications: Reviewed and agree with Discharge Medication list on patient's Discharge Instruction sheet Condition at discharge Stable. Instructions to patient/family Dr. Torrez in 4 weeks. Keysha TORREZ MD Feb 07, 2020 13:14
[2020-02-07] MEDS ORDERED: PATIENT MAY USE OWN MEDS, ALL PO SCH (13:15)
== END 2020-02-07 17:45 | disposition home or self-care (01) ==
LOC: CATH 08:50 → ICU 13:25 → CATH 17:45
PROVIDERS: ATTEND Internal Medicine Interventional Cardiology
DX: I70.1 Atherosclerosis of renal artery (principal); I10 Essential (primary) hypertension; E78.5 Hyperlipidemia, unspecified; I25.10 Atherosclerotic heart disease of native coronary artery without angina pectoris; E11.9 Type 2 diabetes mellitus without complications; I71.4 Abdominal aortic aneurysm, without rupture; I65.29 Occlusion and stenosis of unspecified carotid artery; Z86.73 Personal history of transient ischemic attack (TIA), and cerebral infarction without residual deficits; F32.9 Major depressive disorder, single episode, unspecified; F17.210 Nicotine dependence, cigarettes, uncomplicated; Z79.82 Long term (current) use of aspirin; Z79.899 Other long term (current) drug therapy
CPT/HCPCS: 36245; 36251; 75630; 75726; 75774; 80053; 80061; 85027; 85610; 85730; 87081; C1760; C1894; 36415

== ENCOUNTER → 2020-03-18 | Outpatient (CLI) | payer MEDICARE ==
[~2020-03-18] MED LIST changes: +ASPI-586 PO
--- NOTE | 2020-03-18 14:43 | Diagnostic Imaging Report ---
PROCEDURE: US Renal Bilateral. TECHNIQUE: Multiple real-time grayscale images were obtained over the kidneys in various projections bilaterally. INDICATION: Stage III chronic renal disease. Comparison with CT scan of 01/28/2019 of the abdomen. FINDINGS: The right kidney measures 9 x 4 x 3.6 cm. There is thinning of the renal cortex. There are multiple cysts. Largest off the lower pole measures approximately 6 cm. Left kidney measures 10 x 6 x 5.6 cm. No evidence of renal cyst. No hydronephrosis or calculi demonstrated within either kidney. The bladder shows only a small amount of urine. The prostate is quite enlarged with very lobulated appearance. The ureteral jets were not demonstrated. IMPRESSION: 1. Large simple appearing cyst right kidney which do not appear significantly changed from previous CT scan. 2. No evidence of obstructive uropathy. 3. Large lobulated prostate without evidence of urinary retention at this time. Dictated by: Dictated on workstation # [id number]
== END ==
LOC: RAD 08:26
PROVIDERS: ATTEND Internal Medicine Nephrology
DX: I12.9 Hypertensive chronic kidney disease with stage 1 through stage 4 chronic kidney disease, or unspecified chronic kidney disease (principal); N28.1 Cyst of kidney, acquired; N40.0 Benign prostatic hyperplasia without lower urinary tract symptoms; N42.89 Other specified disorders of prostate; Z86.79 Personal history of other diseases of the circulatory system
CPT/HCPCS: 76770

== ENCOUNTER → 2020-06-30 | Outpatient (CLI) | payer MEDICARE ==
[~2020-06-30] MED LIST changes: +AMLO-250; -AMLO5TAB9; -PANT40TA3; +PANT40TA52
[2020-06-30 10:55] LABS: BASOPHILS % (AUTO) 1 % (0-10); EOSINOPHILS # (AUTO) 0.2 10^3/uL (0.0-0.3); EOSINOPHILS % (AUTO) 3 % (0-10); HEMATOCRIT 42 % (40-54); HEMOGLOBIN 13.4 g/dL (13.3-17.7); LYMPHOCYTES # (AUTO) 1.5 10^3/uL (1.0-4.0); LYMPHOCYTES % (AUTO) 25 % (12-44); MEAN CORPUSCULAR HEMOGLOBIN 32 pg (25-34); MEAN CORPUSCULAR HGB CONC 32 g/dL (32-36); MEAN CORPUSCULAR VOLUME 99 fL (80-99); MEAN PLATELET VOLUME 9.4 fL (9.0-12.2); MONOCYTES # (AUTO) 0.5 10^3/uL (0.0-1.0); MONOCYTES % (AUTO) 8 % (0-12); NEUTROPHILS # (AUTO) 3.7 10^3/uL (1.8-7.8); NEUTROPHILS % (AUTO) 64 % (42-75); PLATELET COUNT 166 10^3/uL (130-400); WHITE BLOOD COUNT 5.8 10^3/uL (4.3-11.0)
[2020-06-30 11:12] LABS: ALBUMIN 3.8 GM/DL (3.2-4.5)
[2020-06-30 11:14] LABS: CALCIUM 8.8 MG/DL (8.5-10.1)
[2020-06-30 11:18] LABS: PHOSPHORUS 2.9 MG/DL (2.3-4.7)
[2020-06-30 11:19] LABS: CREATININE SERUM 1.67 MG/DL (0.60-1.30)
[2020-06-30 11:21] LABS: URIC ACID 4.1 MG/DL (2.6-7.2)
== END ==
LOC: LAB 10:23
PROVIDERS: ATTEND Internal Medicine Nephrology
DX: N40.0 Benign prostatic hyperplasia without lower urinary tract symptoms (principal); I12.9 Hypertensive chronic kidney disease with stage 1 through stage 4 chronic kidney disease, or unspecified chronic kidney disease; N18.30 Chronic kidney disease, stage 3 unspecified; Z86.79 Personal history of other diseases of the circulatory system
CPT/HCPCS: 36415; 80069; 82570; 83970; 84156; 84550; 85025

== ENCOUNTER → 2020-10-23 | Outpatient (CLI) | payer MEDICARE ==
--- NOTE | 2020-10-23 10:00 | Diagnostic Imaging Report ---
INDICATION: SOB FATIGUE. TECHNIQUE: Two view chest 9:44 AM CORRELATION STUDY: 01/07/2019 FINDINGS: Heart size and vasculature unchanged and within normal limits. Coronary artery stent left heart border. There is a torturous course of the thoracic aorta. Chronic appearing change of the lung baxter which are otherwise clear. Probable small esophageal hernia. Slight accentuated thoracic kyphosis with degenerative change of the spine. IMPRESSION: 1. Negative for acute abnormality of the chest. Dictated by: Dictated on workstation # [id number]
[2020-10-23 10:11] LABS: HEMOGLOBIN 13.1 g/dL (13.3-17.7); MEAN PLATELET VOLUME 9.9 fL (9.0-12.2); WHITE BLOOD COUNT 5.3 10^3/uL (4.3-11.0)
[2020-10-23 10:22] LABS: ALBUMIN 3.8 GM/DL (3.2-4.5); POTASSIUM 3.6 MMOL/L (3.6-5.0)
[2020-10-23 10:24] LABS: CALCIUM 8.8 MG/DL (8.5-10.1)
[2020-10-23 10:25] LABS: TOTAL PROTEIN 7.3 GM/DL (6.4-8.2)
[2020-10-23 10:27] LABS: BILIRUBIN,TOTAL 0.5 MG/DL (0.1-1.0)
[2020-10-23 10:28] LABS: CREATININE SERUM 1.73 MG/DL (0.60-1.30)
== END ==
LOC: RAD 09:29
PROVIDERS: ATTEND Family Medicine
DX: R53.83 Other fatigue (principal); J44.9 Chronic obstructive pulmonary disease, unspecified
CPT/HCPCS: 36415; 71046; 80053; 84436; 84443; 85027

== ENCOUNTER 2021-04-20 14:38 | Observation (INO) | payer MEDICARE ==
[2021-04-20] VITALS (11 sets, daily range): BP systolic 95–123; BP diastolic 59–94
[~2021-04-20] VITALS: Ht 172 cm; Wt 58.2 kg
[2021-04-20] MEDS ORDERED: NS IV 500 ML 500 ML IV SCH (15:00)
--- NOTE | 2021-04-20 15:05 | ED General ---
General Chief Complaint: Neurological Problems Stated Complaint: POSSIBLE STROKE Source of Information: Patient, Family Exam Limitations: No Limitations History of Present Illness Date Seen by Provider: Apr 20, 2021 Time Seen by Provider: 14:45 Initial Comments Patient is an 80-year-old male who presents to the emergency department today with a chief complaint of feeling dizzy. Patient cannot describe his dizziness, and he does state that he feels like if he gets up and starts to walk that he might fall down. He says he has not been feeling well for a couple of days, worse today. His notes that she was having a difficult time getting him up and out of bed, she called her [id number] who is friends with a former ER physician and they came over to the house and were able to encourage him to come to the hospital. Mr. Slade has history of coronary artery disease with 5 prior stents placed. 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 His primary care physician is Robin Calix although his states that he is not very compliant with follow-up appointments. Mr. Slade states that he is not on a blood thinner. He denies chest pain today or shortness of breath. He actually is not feeling any palpitations although telemetry reveals he is got a heart rate in the 150s. He denies recent illnesses such as fevers, chills, productive cough. He is Covid vaccinated. He states that he is always got some degree of sinus congestion. He denies headache. No nausea, vomiting diarrhea or complaints. No swelling in his legs. Patient is accompanied by his and 2 sons. All other review of systems reviewed and negative except as stated. Allergies and Home Medications Allergies Coded Allergies: No Known Drug Allergies (Unverified , 02/07/20) Patient Home Medication List Home Medication List Reviewed: Yes Amlodipine Besylate (Amlodipine Besylate) 5 Mg Tablet, (Reported) Entered as Reported by: MARINO NEWMAN on 01/30/16 1527 Aspirin (Aspir 81) 81 Mg Tablet., 81 MG PO DAILY, (Reported) Entered as Reported by: MARLEN NEELY on 02/07/20 0945 Atorvastatin Calcium (Atorvastatin Calcium) 20 Mg Tablet, (Reported) Entered as Reported by: MARINO NEWMAN on 01/30/16 1527 Metoprolol Succinate (Metoprolol Succinate) 50 Mg Tab.er.24h, (Reported) Entered as Reported by: MARINO NEWMAN on 01/30/16 152 Prasugrel HCl (Effient) 10 Mg Tablet, (Reported) Entered as Reported by: MARINO NEWMAN on 01/30/161526 Tamsulosin HCl (Tamsulosin HCl) 0.4 Mg Cap.er.24h, (Reported) Entered as Reported by: MARINO NEWMAN on 01/30/161526 Review of Systems Review of Systems Constitutional: see HPI EENTM: no symptoms reported Respiratory: no symptoms reported Cardiovascular: no symptoms reported Gastrointestinal: no symptoms reported Genitourinary: no symptoms reported Musculoskeletal: no symptoms reported Skin: no symptoms reported Psychiatric/Neurological: Other ("dizziness" feels like he may fall down) All Other Systems Reviewed Negative Unless Noted: Yes Past Qvxrdcz-Xesxry-Mrmojj Hx Immunizations Up To Date Tetanus Booster (TDap): Unknown Past Medical History Abdominal, Coronary Stent, Vascular Surgery Respiratory: No Currently Using CPAP: No Currently Using BIPAP: No Cardiac: Yes (X4 STENTS) Aneurysm, Coronary Artery Disease, Heart Attack, Hypertension Neurological: Yes TIA Reproductive Disorders: No Genitourinary: No Gastrointestinal: No Arthritis Cancer: No Blood Disorders: No Family Medical History Kidney disease 19 FATHER Physical Exam Vital Signs Vital Signs - First Documented 04/20/21 14:40 Pulse 97 Resp 18 B/P (MAP) 122/78 (93) Pulse Ox 94 O2 Delivery Room Air Capillary Refill : Height, Weight, BMI Height: 5'8.00" Weight: 152lbs. 6.4oz. [id number]; 21.04 BMI Method:Stated General Appearance: No Apparent Distress, WD/WN Eyes: Bilateral Eye Normal Inspection, Bilateral Eye PERRL, Bilateral Eye EOMI HEENT: PERRL/EOMI, TMs Normal, Normal ENT Inspection, Pharynx Normal, Other (dry oral mucosa) Neck: Normal Inspection Respiratory: Lungs Clear, Normal Breath Sounds, No Accessory Muscle Use, No Respiratory Distress Cardiovascular: Regular Rate, Rhythm, Tachycardia, Other (good adequate distal pulses) Gastrointestinal: Non Tender, Soft Extremity: Normal Capillary Refill, Normal Inspection, Normal Range of Motion, Non Tender, No Calf Tenderness, No Pedal Edema Neurologic/Psychiatric: Alert, Oriented x3, No Motor/Sensory Deficits, Normal Mood/Affect, respiratory medicine physician II-XII Norm as Tested Skin: Normal Color, Warm/Dry Progress/Results/Core Measures Suspected Sepsis SIRS Temperature: Pulse: Respiratory Rate: Laboratory Tests 04/20/21 14:53: White Blood Count 6.4 Blood Pressure / Mean: Laboratory Tests 04/20/21 14:53: Creatinine 1.71H, INR Comment 1.0, Platelet Count 269, Total Bilirubin 0.3 Results/Orders Lab Results Laboratory Tests Test 04/20/21 14:43 04/20/21 14:53 Range/Units Glucometer 139 H 70-110 MG/DL White Blood Count 6.4 4.3-11.0 10^3/uL Red Blood Count 3.99 L 4.30-5.52 10^6/uL Hemoglobin 11.9 L 13.3-17.7 g/dL Hematocrit 37 L 40-54 % Mean Corpuscular Volume 92 80-99 fL Mean Corpuscular Hemoglobin 30 25-34 pg Mean Corpuscular Hemoglobin Concent 32 32-36 g/dL Red Cell Distribution Width 14.6 H 10.0-14.5 % Platelet Count 269 130-400 10^3/uL Mean Platelet Volume 9.1 9.0-12.2 fL Immature Granulocyte % (Auto) 1 % Neutrophils (%) (Auto) 68 42-75 % Lymphocytes (%) (Auto) 23 12-44 % Monocytes (%) (Auto) 7 0-12 % Eosinophils (%) (Auto) 1 0-10 % Basophils (%) (Auto) 1 0-10 % Neutrophils # (Auto) 4.3 1.8-7.8 10^3/uL Lymphocytes # (Auto) 1.5 1.0-4.0 10^3/uL Monocytes # (Auto) 0.5 0.0-1.0 10^3/uL Eosinophils # (Auto) 0.0 0.0-0.3 10^3/uL Basophils # (Auto) 0.0 0.0-0.1 10^3/uL Immature Granulocyte # (Auto) 0.0 0.0-0.1 10^3/uL Prothrombin Time 13.5 12.2-14.7 SEC INR Comment 1.0 0.8-1.4 Activated Partial Thromboplast Time 34 24-35 SEC Sodium Level 135 135-145 MMOL/L Potassium Level 3.7 3.6-5.0 MMOL/L Chloride Level 101 98-107 MMOL/L Carbon Dioxide Level 22 21-32 MMOL/L Anion Gap 12 5-14 MMOL/L Blood Urea Nitrogen 20 H 7-18 MG/DL Creatinine 1.71 H 0.60-1.30 MG/DL Estimat Glomerular Filtration Rate 39 BUN/Creatinine Ratio 12 Glucose Level 125 H 70-105 MG/DL Calcium Level 9.7 8.5-10.1 MG/DL Corrected Calcium 10.2 H 8.5-10.1 MG/DL Magnesium Level 2.1 1.6-2.4 MG/DL Total Bilirubin 0.3 0.1-1.0 MG/DL Aspartate Amino Transf (AST/SGOT) 17 5-34 U/L Alanine Aminotransferase (ALT/SGPT) 14 0-55 U/L Alkaline Phosphatase 79 40-136 U/L Total Protein 8.1 6.4-8.2 GM/DL Albumin 3.4 3.2-4.5 GM/DL My Orders Orders - NAVEED PURDY MD Ed Iv/Invasive Line Start (04/20/21 14:59) Cbc With Automated Diff (04/20/21 14:59) Comprehensive Metabolic Panel (04/20/21 14:59) Magnesium (04/20/21 14:59) Ekg Tracing (04/20/21 14:59) Chest 1 View, Ap/Pa Only (04/20/21 14:59) Ns Iv 500 Ml (Sodium Chloride 0.9%) (04/20/21 15:00) Protime With Inr (04/20/21 15:05) Partial Thromboplastin Time (04/20/21 15:05) Vital Signs/I&O 04/20/21 04/20/21 14:40 15:16 Pulse 97 85 Resp 18 18 B/P (MAP) 122/78 (93) 109/76 Pulse Ox 94 97 O2 Delivery Room Air Room Air Capillary Refill : Progress Note : Time: 15:12 Progress Note Call made to [facility] to verify medications. 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 Patient is currently on amlodipine 10 mg, statin 20 mg, metoprolol 50 daily, Effient 10 mg daily and Flomax prescribed by a [employer] powertrain calibration engineer. ECG Initial ECG Impression Date: Apr 20, 2021 Initial ECG Impression Time: 14:41 Initial ECG Rate: 153 Initial ECG Rhythm: SVT Initial ECG Intervals TN read as 219 QRS 85 QTc 492 Initial ECG Impression: SVT EKG #1: EKG Time: 14:56 Rate: 123 Rhythm: Normal Sinus Intervals Noted heart rate initially for the first couple of seconds a sinus rhythm transitioning into a flutter rate of 120s EKG #2: EKG Time: 14:56 Rate: 144 Rhythm: A Fib/Flutter ECG Impression: Atrial Fibrillation Departure Communication (Admissions) Time/Spoke to Admitting Phy: 15:[address] Calix Time/Spoke to Consulting Phy: 15:[address] Pretty; recc Lovenox, amio bolus and drip, echo tomorrow Impression Primary Impression: Atrial fibrillation with rapid ventricular response Additional Impression: Dizziness Disposition: 09 ADMITTED INPATIENT Condition: Stable Admissions Decision to Admit Reason: Admit from ER (General) Decision to Admit/Date: Apr 20, 2021 Time/Decision to Admit Time: 15:14 Departure-Patient Inst. Referrals: ROBIN CALIX MD (PCP/Family) Primary Care Physician NAVEED PURDY MD Apr 20, 2021 15:05
[2021-04-20 15:07] LABS: BASOPHILS % (AUTO) 1 % (0-10); EOSINOPHILS % (AUTO) 1 % (0-10); HEMATOCRIT 37 % (40-54); HEMOGLOBIN 11.9 g/dL (13.3-17.7); LYMPHOCYTES # (AUTO) 1.5 10^3/uL (1.0-4.0); LYMPHOCYTES % (AUTO) 23 % (12-44); MEAN CORPUSCULAR HEMOGLOBIN 30 pg (25-34); MEAN CORPUSCULAR HGB CONC 32 g/dL (32-36); MEAN CORPUSCULAR VOLUME 92 fL (80-99); MEAN PLATELET VOLUME 9.1 fL (9.0-12.2); MONOCYTES # (AUTO) 0.5 10^3/uL (0.0-1.0); MONOCYTES % (AUTO) 7 % (0-12); NEUTROPHILS # (AUTO) 4.3 10^3/uL (1.8-7.8); NEUTROPHILS % (AUTO) 68 % (42-75); PLATELET COUNT 269 10^3/uL (130-400); WHITE BLOOD COUNT 6.4 10^3/uL (4.3-11.0)
[2021-04-20 15:18] LABS: ALBUMIN 3.4 GM/DL (3.2-4.5); POTASSIUM 3.7 MMOL/L (3.6-5.0)
[2021-04-20 15:19] LABS: CALCIUM 9.7 MG/DL (8.5-10.1); PROTHROMBIN TIME PATIENT 13.5 SEC (12.2-14.7)
[2021-04-20 15:21] LABS: TOTAL PROTEIN 8.1 GM/DL (6.4-8.2)
[2021-04-20 15:23] LABS: BILIRUBIN,TOTAL 0.3 MG/DL (0.1-1.0)
[2021-04-20 15:24] LABS: CREATININE SERUM 1.71 MG/DL (0.60-1.30)
[2021-04-20 15:27] LABS: MAGNESIUM 2.1 MG/DL (1.6-2.4)
[2021-04-20] MEDS ORDERED: D5W IV ONE (15:45)
[2021-04-20] MEDS ORDERED: ADENOSINE IV ONE (15:45)
[2021-04-20] MEDS ORDERED: AMIODARONE FOR BOLUS 150 MG in D5W 100 ML IVPB 100 ML IV ONE (15:45)
[2021-04-20] MEDS ORDERED: ENOXAPARIN 60 MG/0.6 ML (LOVENOX) SYR SC ONE (15:45)
--- NOTE | 2021-04-20 15:49 | Diagnostic Imaging Report ---
HISTORY: Dizziness, atrial fibrillation, weakness. COMPARISON: 10/23/2020. TECHNIQUE: Frontal view of the chest. FINDINGS: Lung volumes are normal. No consolidation is seen. There is no pleural effusion or pneumothorax. The cardiac silhouette is normal in size. There is aortic atherosclerosis. IMPRESSION: 1. No acute pulmonary abnormality. Dictated by: Dictated on workstation # [id number]
--- NOTE | 2021-04-20 16:33 | Consultation-Cardiology ---
HPI-Cardiology Cardiology Consultation Date of Consultation 04/20/21 Date of Admission Time Seen by Provider: 16:28 Indication: Palpitation HPI 80 years old gentleman with history of coronary artery disease, hypertension, reported that he started to feel lightheaded and having episodes of palpitation, came into the emergency room, lab work were normal while on telemetry started to have episode of narrow complex tachycardia heart rate around 150 where he started feeling nauseous and lightheaded, no chest pain was reported. No syncope was reported. On my evaluation he was feeling better, back to sinus rhythm. No new complaint. Home Medications & Allergies Allergies: Coded Allergies: No Known Drug Allergies (Unverified , 02/07/20) Home Medication List Reviewed: Yes VRN-Yhpyuq-Kmaarj Hx Patient Social History Marital Status: Employed/Student: retired Former smoker/When Quit: November 15, 2015 Type Used: Cigars 2nd Hand Smoke Exposure: Yes Recent Hopitalizations: Yes Have you traveled recently?: No Immunizations Up To Date Tetanus Booster (TDap): Unknown Past Medical History Discussed below Family Medical History Family Medical Hx Noncontributory Family History: Kidney disease 19 FATHER Review of Systems-General Review of Systems Constitutional: see HPI, malaise EENTM: see HPI, no symptoms reported Respiratory: see HPI; No cough; dyspnea on exertion; No hemoptysis, No orthopnea, No phlegm, No short of breath, No stridor, No wheezing, No other Cardiovascular: see HPI; No chest pain, No edema, No Hx of Intervention; palpitations; No syncope, No vascular heart diseas, No other Gastrointestinal: no symptoms reported, see HPI Genitourinary: no symptoms reported, see HPI Musculoskeletal: no symptoms reported, see HPI Skin: no symptoms reported, see HPI Psychiatric/Neurological: No Symptoms Reported, See HPI Reviewed Test Results Reviewed Test Results Lab Laboratory Tests Test 04/20/21 14:43 04/20/21 14:53 Range/Units Glucometer 139 H 70-110 MG/DL White Blood Count 6.4 4.3-11.0 10^3/uL Red Blood Count 3.99 L 4.30-5.52 10^6/uL Hemoglobin 11.9 L 13.3-17.7 g/dL Hematocrit 37 L 40-54 % Mean Corpuscular Volume 92 80-99 fL Mean Corpuscular Hemoglobin 30 25-34 pg Mean Corpuscular Hemoglobin Concent 32 32-36 g/dL Red Cell Distribution Width 14.6 H 10.0-14.5 % Platelet Count 269 130-400 10^3/uL Mean Platelet Volume 9.1 9.0-12.2 fL Immature Granulocyte % (Auto) 1 % Neutrophils (%) (Auto) 68 42-75 % Lymphocytes (%) (Auto) 23 12-44 % Monocytes (%) (Auto) 7 0-12 % Eosinophils (%) (Auto) 1 0-10 % Basophils (%) (Auto) 1 0-10 % Neutrophils # (Auto) 4.3 1.8-7.8 10^3/uL Lymphocytes # (Auto) 1.5 1.0-4.0 10^3/uL Monocytes # (Auto) 0.5 0.0-1.0 10^3/uL Eosinophils # (Auto) 0.0 0.0-0.3 10^3/uL Basophils # (Auto) 0.0 0.0-0.1 10^3/uL Immature Granulocyte # (Auto) 0.0 0.0-0.1 10^3/uL Prothrombin Time 13.5 12.2-14.7 SEC INR Comment 1.0 0.8-1.4 Activated Partial Thromboplast Time 34 24-35 SEC Sodium Level 135 135-145 MMOL/L Potassium Level 3.7 3.6-5.0 MMOL/L Chloride Level 101 98-107 MMOL/L Carbon Dioxide Level 22 21-32 MMOL/L Anion Gap 12 5-14 MMOL/L Blood Urea Nitrogen 20 H 7-18 MG/DL Creatinine 1.71 H 0.60-1.30 MG/DL Estimat Glomerular Filtration Rate 39 BUN/Creatinine Ratio 12 Glucose Level 125 H 70-105 MG/DL Calcium Level 9.7 8.5-10.1 MG/DL Corrected Calcium 10.2 H 8.5-10.1 MG/DL Magnesium Level 2.1 1.6-2.4 MG/DL Total Bilirubin 0.3 0.1-1.0 MG/DL Aspartate Amino Transf (AST/SGOT) 17 5-34 U/L Alanine Aminotransferase (ALT/SGPT) 14 0-55 U/L Alkaline Phosphatase 79 40-136 U/L Total Protein 8.1 6.4-8.2 GM/DL Albumin 3.4 3.2-4.5 GM/DL Physical Exam Physical Exam Vital Signs Vital Signs - First Documented 04/20/21 14:40 Pulse 97 Resp 18 B/P (MAP) 122/78 (93) Pulse Ox 94 O2 Delivery Room Air Capillary Refill : Less Than 3 Seconds Height, Weight, BMI Height: 5'8.00" Weight: 152lbs. 6.4oz. [id number]; 20.00 BMI Method:Stated General Appearance: No Apparent Distress, WD/WN Eyes: Bilateral Eye Normal Inspection, Bilateral Eye PERRL, Bilateral Eye EOMI HEENT: PERRL/EOMI, TMs Normal, Normal ENT Inspection, Pharynx Normal, Moist Mucous Membranes Neck: Full Range of Motion, Normal Inspection, Non Tender, Supple, Carotid Bruit Respiratory: Chest Non Tender, Normal Breath Sounds, No Accessory Muscle Use, No Respiratory Distress Cardiovascular: Regular Rate, Rhythm, No Edema, No Gallop, No JVD, No Murmur, Normal Peripheral Pulses Gastrointestinal: Normal Bowel Sounds, No Organomegaly, No Pulsatile Mass, Non Tender, Soft Back: Normal Inspection, No CVA Tenderness, No Vertebral Tenderness Extremity: Normal Capillary Refill, Normal Inspection, Normal Range of Motion, Non Tender, No Calf Tenderness, No Pedal Edema Neurologic/Psychiatric: Alert, Oriented x3, No Motor/Sensory Deficits, Normal Mood/Affect Skin: Normal Color, Warm/Dry Lymphatic: No Adenopathy A/P-Cardiology Admission Diagnosis Palpitation Tachycardia, paroxysmal supraventricular tachycardia Hypertension Hyperlipidemia Assessment/Plan Symptomatic tachycardia, multiple episodes of narrow complex tachycardia, probably paroxysmal atrial tachycardia or reentry tachycardia. Self-limited, during the episode patient was significantly symptomatic. He has been maintained on amlodipine and metoprolol as an outpatient. I will add amiodarone and monitor, planning to evaluate 2D echo. History of TIA with full recovery, asymptomatic at this time. Could be secondary to episode of atrial flutter or fibrillation. Dizziness and near syncope during the episode, no full syncope was reported. Acute on chronic renal insufficiency, starting IV fluid, monitor renal function Coronary artery disease, multiple interventions in the past, had a stent placed by Dr. Herbert in 2009 in the circumflex artery, multiple stents done by Dr. Miller afterward. Continue to monitor Echocardiogram done in March 2020 showing normal LV size, EF 50 to 60%, grade 1 diastolic dysfunction, aortic sclerosis, mild to moderate pulmonary regurgitation, PA pressure 20 to 25 mmHg. Hypertension, continue to monitor blood pressure, restart metoprolol and amlodipine Hyperlipidemia, I will evaluate lipid profile History of abdominal aortic aneurysm, stent done in the past, had a CTA done in May 2018 then January 2019 showing normal endograft with no leak. Abdominal angiogram was done in January 2020 did not show any leak, CT abdomen was not done at that time due to borderline renal function. Chronic renal insufficiency stage III. Asymptomatic. Was scheduled initially to see a mds rn, currently feeling well. We will continue to monitor renal function and refer him to nephrology if there is any deterioration in renal function. Bilateral leg discomfort, better at this time, BARTOLOME was done in February 2018 was 1.15 on the right and 1.09 on the left. 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 Had some weight loss and loss of appetite in the past. Currently feeling well. Had angiogram done in January 2020 which showed mild to moderate disease. Continue to monitor Moderate carotid stenosis, I will evaluate carotid ultrasound History of TIA, full recovery. Asymptomatic at this time Tobaccoism, smoking 1 to 2 cigars a day, we discussed going down to 1-2 a week. FRANCHESKA DOVE MD Apr 20, 2021 16:33
[2021-04-20] MEDS: AMIODARONE INJECTION 450 MG in D5W IV SOLUTION (EXCEL) 250 ML IV SCH (16:52)
[2021-04-20] MEDS ORDERED: AMIODARONE 450 MG/250 ML D5W EXCEL IV SCH ×2 (17:00)
[2021-04-20] MEDS ORDERED: ENOXAPARIN 60 MG/0.6 ML (LOVENOX) SYR SC SCH (17:30)
[2021-04-20] MEDS ORDERED: NS IV 1000 ML 1,000 ML IV SCH ×2 (17:30→18:00)
[2021-04-20] MEDS ORDERED: FLU QUAD HIGH DOSE 240 MCG/0.7 ML 2021-22 (FLUZONE) IM ONE (19:45)
--- NOTE | 2021-04-20 23:26 | History & Physical ---
History of Present Illness History of Present Illness Reason for visit/HPI 80 year old male admitted for afib with RVR. He came to the hospital not feeling well- specifically weakness, low energy. He has a poor appetite and attributes this to not doing much labor so he does not work up an appetite. 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 He does not have hobbies. thinks he is depressed due to not having anything to do. We tried sertraline in 2019 but he said he was not depressed and stopped the medication. Since being in the ER he has gotten amiodarone iv- he has converted out of RVR. He was admitted for observation and echo in AM. He reports he feels much better this evening and would consider going home. He has had the COVID vaccine. Date of Admission Apr 20, 2021 at 15:41 Date Seen by a Provider: Apr 20, 2021 Time Seen by a Provider: 18:20 I consulted on this patient on 04/20/21 23:20 Attending Physician Robin Calix MD Admitting Physician Robin Calix MD Consult Allergies and Home Medications Allergies Coded Allergies: No Known Drug Allergies (Unverified , 02/07/20) Patient Home Medication List Home Medication List Reviewed: Yes Amlodipine Besylate (Amlodipine Besylate) 5 Mg Tablet, (Reported) Entered as Reported by: MARINO NEWMAN on 01/30/16 152 Aspirin (Aspir 81) 81 Mg Tablet.dr, 81 MG PO DAILY, (Reported) Entered as Reported by: MARLEN NEELY on 02/07/20 0945 Atorvastatin Calcium (Atorvastatin Calcium) 20 Mg Tablet, (Reported) Entered as Reported by: MARINO NEWMAN on 01/30/16 152 Metoprolol Succinate (Metoprolol Succinate) 50 Mg Tab.er.24h, (Reported) Entered as Reported by: MARINO NEWMAN on 01/30/16 152 Prasugrel HCl (Effient) 10 Mg Tablet, (Reported) Entered as Reported by: MARINO NEWMAN on 01/30/16 152 Tamsulosin HCl (Tamsulosin HCl) 0.4 Mg Cap.er.24h, (Reported) Entered as Reported by: MARINO NEWMAN on 01/30/16 1527 Past Jtpyubu-Nksfyb-Tuamvj Hx Patient Social History Marrital Status: Employed/Student: retired Tobacco Use?: Yes Tobacco type used: Cigars Smoking Status: Current Everyday Smoker Use of E-Cig and/or Vaping dev: No Substance use?: No Alcohol Use?: Yes Alcohol type: Beer Alcohol Frequency: Rarely Pt feels they are or have been: No Immunizations Up To Date First/Initial COVID19 Vaccinat: AUG 28 Second COVID19 Vaccination Zenon: SEPTEMBER 25 Tetanus Booster (TDap): Unknown Current Status Advance Directives: No Communicates: Verbally Primary Language: Hebrew Sensory deficits: Hearing impairment Implanted or Applied Medical D: Stents Past Medical History Surgeries: Abdominal, Coronary Stent, Vascular Surgery Currently Using CPAP: No Currently Using BIPAP: No Aneurysm, Coronary Artery Disease, Heart Attack, Hypertension TIA Arthritis Blood Disorders: No Family Medical History Kidney disease 19 FATHER Review of Systems Review of Systems General: No Chills, No Night Sweats HEENT: No Head Aches, No Visual Changes Pulmonary: No Dyspnea, No Cough Cardiovascular: Palpitations; No: Chest Pain Gastrointestinal: No: Nausea, Vomiting, Abdominal Pain Genitourinary: No Dysuria Neurological: Weakness; No: Confusion Physical Exam Vital Signs Vital Signs - First Documented 04/20/21 04/20/21 14:40 17:00 Temp 36.5 Pulse 97 Resp 18 B/P (MAP) 122/78 (93) Pulse Ox 94 O2 Delivery Room Air Capillary Refill : Less Than 3 Seconds Height, Weight, BMI Height: 5'8.00" Weight: 152lbs. 6.4oz. [id number]; 19.67 BMI Method:Stated General Appearance: No Apparent Distress HEENT: PERRL/EOMI Neck: Full Range of Motion, Non Tender Respiratory: Chest Non Tender, Lungs Clear, Normal Breath Sounds Cardiovascular: No Edema, Other (irregular rhythm) Gastrointestinal: Soft Rectal: Deferred Back: Normal Inspection, No CVA Tenderness Extremity: Normal Capillary Refill, Non Tender Neurologic/Psychiatric: Alert, Oriented x3, No Motor/Sensory Deficits Skin: Normal Color, Warm/Dry Assessment/Plan Assessment/Plan Admission Dx palpitations Admission Status: Observation Assessment and Plan admitted for Afib RVR?, tachycardia/palpitations- not currently in RVR- he is feeling better -echo tomorrow. Dr. Pretty consulted. -gentle fluid hydration -rechecking labs in AM to see if Cr improves with IVFs. -lovenox dvt ppx. Dispo: plan to discharge to home tomorrow if no new issues develop. -full code. Problems: (1) Tachycardia (2) Chronic kidney disease, stage 3, mod decreased GFR Qualifiers: Qualified Codes: N18.32 - Chronic kidney disease, stage 3b Assessment & Plan: near his baseline of 1.6 (3) Dizziness (4) CHRONIC MESSENTERIC ISCHEMIA ROBIN CALIX MD Apr 20, 2021 23:26
[2021-04-21] VITALS: BP 115/69
[2021-04-21] MEDS: AMIODARONE INJECTION 450 MG in D5W IV SOLUTION (EXCEL) 250 ML IV SCH (00:18)
[2021-04-21 04:00] VITALS: BP 117/73
[2021-04-21 06:05] LABS: HEMATOCRIT 31 % (40-54); HEMOGLOBIN 9.9 g/dL (13.3-17.7); MEAN CORPUSCULAR HEMOGLOBIN 30 pg (25-34); MEAN CORPUSCULAR HGB CONC 32 g/dL (32-36); MEAN CORPUSCULAR VOLUME 92 fL (80-99); MEAN PLATELET VOLUME 9.5 fL (9.0-12.2); PLATELET COUNT 246 10^3/uL (130-400); WHITE BLOOD COUNT 5.1 10^3/uL (4.3-11.0)
[2021-04-21 06:15] LABS: ALBUMIN 2.8 GM/DL (3.2-4.5); CHLORIDE 105 MMOL/L (98-107); POTASSIUM 3.6 MMOL/L (3.6-5.0); SODIUM 135 MMOL/L (135-145)
[2021-04-21 06:16] LABS: CALCIUM 8.6 MG/DL (8.5-10.1)
[2021-04-21 06:17] LABS: GLUCOSE 90 MG/DL (70-105); TOTAL PROTEIN 6.5 GM/DL (6.4-8.2)
[2021-04-21 06:18] LABS: CARBON DIOXIDE 20 MMOL/L (21-32)
[2021-04-21 06:19] LABS: BILIRUBIN,TOTAL 0.4 MG/DL (0.1-1.0)
[2021-04-21 06:21] LABS: ALKALINE PHOSPHATASE 65 U/L (40-136); CREATININE SERUM 1.43 MG/DL (0.60-1.30); GFR ESTIMATED 47
[2021-04-21 06:22] LABS: BUN/CREATININE RATIO 11
[2021-04-21 06:24] LABS: ALANINE AMINOTRANSFERASE 15 U/L (0-55)
[2021-04-21 08:00] VITALS: BP 116/84
[2021-04-21 08:15] VITALS: BP 126/74
[2021-04-21] MEDS ORDERED: meTOproloL SUCCINATE 50 MG (TOPROL XL) TAB PO SCH (09:00)
[2021-04-21] MEDS ORDERED: AMIODARONE 200 MG (CORDARONE) TAB PO SCH (09:00)
[2021-04-21] MEDS ORDERED: amLODIPine 10 MG (NORVASC) TAB PO SCH (09:00)
--- NOTE | 2021-04-21 09:00 | Cardiology Progress Note ---
Subjective Date Seen by Provider: Apr 21, 2021 Time Seen by Provider: 08:58 Subjective/Events-last exam Patient was seen at bedside, laying down comfortably, no further arrhythmia was noted since starting on amiodarone Review of Systems General: No Chills, No Night Sweats, No Fatigue, No Malaise, No Appetite, No Other HEENT: No Head Aches, No Visual Changes, No Eye Pain, No Ear Pain, No Dysphasia, No Sinus Congestion, No Post Nasal Drip, No Sore Throat, No Other Pulmonary: No Dyspnea, No Cough, No Pleuritic Chest Pain, No Other Cardiovascular: No: Chest Pain, Palpitations, Orthopnea, Paroxysmal Noc. Dyspnea, Edema, Lt Headedness, Other Objective-Cardiology Exam Last Set of Vital Signs Vital Signs 04/20/21 04/21/21 23:29 08:15 Temp 36.6 Pulse 71 Resp 16 B/P (MAP) 126/74 (91) Pulse Ox 98 O2 Delivery Room Air I&O Intake and Output 04/21/21 00:00 Intake Total 600 ml Balance 600 ml Intake Oral 100 ml IV Total 500 ml # Voids 1 Daily Weight Change Yes, 2-13 lbs General: Alert, Oriented X3, Cooperative HEENT: Atraumatic, PERRLA Neck: Supple, No JVD, No Thyromegaly Lungs: Clear to Auscultation, Normal Air Movement Heart: Regular Rate, Normal S1, Normal S2, No Murmurs Abdomen: Normal Bowel Sounds, Soft, No Tenderness, No Hepatosplenomegaly, No Masses Extremities: No Clubbing, No Cyanosis, No Edema, Normal Pulses, No Tenderness/Swelling Skin: No Rashes, No Breakdown, No Significant Lesion Neuro: Normal Gait, Normal Speech, Strength at 5/5 X4 Ext, Normal Tone, Sensation Intact Psych/Mental Status: Mental Status NL, Mood NL Results Lab Laboratory Tests 04/20/21 14:53 04/21/21 05:22 A/P-Cardiology Admission Diagnosis Palpitation Tachycardia, paroxysmal supraventricular tachycardia Hypertension Hyperlipidemia Assessment/Plan Symptomatic tachycardia, multiple episodes of narrow complex tachycardia, probably paroxysmal atrial tachycardia or reentry tachycardia. Self-limited, during the episode patient was significantly symptomatic. He has been maintained on amlodipine and metoprolol as an outpatient. I added amiodarone which has stopped all those episodes. I will review 2D echo. History of TIA with full recovery, asymptomatic at this time. Could be secondary to episode of atrial flutter or fibrillation. Dizziness and near syncope during the episode, no full syncope was reported. Acute on chronic renal insufficiency, starting IV fluid, monitor renal function Coronary artery disease, multiple interventions in the past, had a stent placed by Dr. Herbert in 2009 in the circumflex artery, multiple stents done by Dr. Estrada barnard afterward. Continue to monitor Echocardiogram done in March 2020 showing normal LV size, EF 50 to 60%, grade 1 diastolic dysfunction, aortic sclerosis, mild to moderate pulmonary regurgitation, PA pressure 20 to 25 mmHg. Hypertension, continue to monitor blood pressure, restart metoprolol and amlodipine Hyperlipidemia, I will evaluate lipid profile History of abdominal aortic aneurysm, stent done in the past, had a CTA done in May 2018 then January 2019 showing normal endograft with no leak. Abdominal angiogram was done in January 2020 did not show any leak, CT abdomen was not done at that time due to borderline renal function. Chronic renal insufficiency stage III. Asymptomatic. Was scheduled initially to see a social service worker, currently feeling well. We will continue to monitor renal function and refer him to nephrology if there is any deterioration in renal function. Bilateral leg discomfort, better at this time, BARTOLOME was done in February 2018 was 1.15 on the right and 1.09 on the left. 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 Had some weight loss and loss of appetite in the past. Currently feeling well. Had angiogram done in January 2020 which showed mild to moderate disease. Continue to monitor Moderate carotid stenosis, I will evaluate carotid ultrasound Tobaccoism, smoking 1 to 2 cigars a day, educated on smoking cessation Okay for discharge from cardiology standpoint, arrange for appointment in 1 week, continue on amiodarone FRANCHESKA DOVE MD Apr 21, 2021 09:00
[2021-04-21] MEDS ORDERED: AMIO200T6 PO (09:01)
--- NOTE | 2021-04-21 10:43 | Discharge Summary ---
Discharge Summary Hospital Course Problems/Dx: (1) Tachycardia (2) Chronic kidney disease, stage 3, mod decreased GFR Qualifiers: Qualified Codes: N18.32 - Chronic kidney disease, stage 3b (3) Dizziness Status: Acute (4) CHRONIC MESSENTERIC ISCHEMIA Hospital Course Date of Admission: Apr 20, 2021 at 15:41 Admission Diagnosis : (1) Tachycardia (2) Chronic kidney disease, stage 3, mod decreased GFR Qualifiers: Qualified Codes: N18.32 - Chronic kidney disease, stage 3b Assessment & Plan: near his baseline of 1.6 (3) Dizziness (4) CHRONIC MESENTERIC ISCHEMIA Family Physician/Provider: Robin Calix MD Date of Discharge: 04/21/21 Discharge Diagnosis: (1) Tachycardia (2) Chronic kidney disease, stage 3, mod decreased GFR Qualifiers: Qualified Codes: N18.32 - Chronic kidney disease, stage 3b Assessment & Plan: near his baseline of 1.6 (3) Dizziness (4) CHRONIC MESENTERIC ISCHEMIA Hospital Course: 80 year old male admitted for afib with RVR. He came to the hospital not feel ing well- specifically weakness, low energy. He has a poor appetite and attributes this to not doing much labor so he does not work up an appetite. 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 He does not have hobbies. thinks he is depressed due to not having anything to do. We tried sertraline in 2019 but he said he was not depressed and stopped the medication. Since being in the ER he has gotten amiodarone iv- he has converted out of RVR. He was admitted for observation and echo in AM. He reports he feels much better this evening and would consider going home. He has had the COVID vaccine. Echo was done this AM-- amiodarone controlled his rate overnight - stable for discharge to home 04/21/21- he will start amiodarone 200mg BID for his SVT. Follow up with Dr. Pretty. He may need ablation in the future. Creatinine improved with IVFs. Labs and Pending Lab Test: Laboratory Tests 04/20/21 14:43: Glucometer 139H 04/20/21 14:53: White Blood Count 6.4, Red Blood Count 3.99L, Hemoglobin 11.9L, Hematocrit 37L, Mean Corpuscular Volume 92, Mean Corpuscular Hemoglobin 30, Mean Corpuscular H emoglobin Concent 32, Red Cell Distribution Width 14.6H, Platelet Count 269, Mean Platelet Volume 9.1, Immature Granulocyte % (Auto) 1, Neutrophils (%) (Auto) 68, Lymphocytes (%) (Auto) 23, Monocytes (%) (Auto) 7, Eosinophils (%) (Auto) 1, Basophils (%) (Auto) 1, Neutrophils # (Auto) 4.3, Lymphocytes # (Auto) 1.5, Monocytes # (Auto) 0.5, Eosinophils # (Auto) 0.0, Basophils # (Auto) 0.0, Immature Granulocyte # (Auto) 0.0, Prothrombin Time 13.5, INR Comment 1.0, Activated Partial Thromboplast Time 34, Sodium Level 135, Potassium Level 3.7, Chloride Level 101, Carbon Dioxide Level 22, Anion Gap 12, Blood Urea Nitrogen 20H, Creatinine 1.71H, Estimat Glomerular Filtration Rate 39, BUN/Creatinine Ratio 12, Glucose Level 125H, Calcium Level 9.7, Corrected Calcium 10.2H, Magnesium Level 2.1, Total Bilirubin 0.3, Aspartate Amino Transf (AST/SGOT) 17, Alanine Aminotransferase (ALT/SGPT) 14, Alkaline Phosphatase 79, Total Protein 8.1, Albumin 3.4 04/21/21 05:22: White Blood Count 5.1, Red Blood Count 3.36L, Hemoglobin 9.9L, Hematocrit 31L, Mean Corpuscular Volume 92, Mean Corpuscular Hemoglobin 30, Mean Corpuscular Hemoglobin Concent 32, Red Cell Distribution Width 14.6H, Platelet Count 246, Mean Platelet Volume 9.5, Sodium Level 135, Potassium Level 3.6, Chloride Level 105, Carbon Dioxide Level 20L, Anion Gap 10, Blood Urea Nitrogen 16, Creatinine 1.43H, Estimat Glomerular Filtration Rate 47, BUN/Creatinine Ratio 11, Glucose Level 90, Calcium Level 8.6, Corrected Calcium 9.6, Total Bilirubin 0.4, Aspartate Amino Transf (AST/SGOT) 17, Alanine Aminotransferase (ALT/SGPT) 15, Alkaline Phosphatase 65, Total Protein 6.5, Albumin 2.8L, Troponin I < 0.028 Home Meds Active Amiodarone HCl 200 Mg Tablet 200 Mg PO BID Reported Aspir 81 (Aspirin) 81 Mg Tablet.dr 81 Mg PO DAILY Effient (Prasugrel HCl) 10 Mg Tablet Atorvastatin Calcium 20 Mg Tablet Amlodipine Besylate 5 Mg Tablet Tamsulosin HCl 0.4 Mg Cap.er.24h Metoprolol Succinate 50 Mg Tab.er.24h Assessment/Pt Instructions follow up with cardiology start amiodarone 200mg BID. Return to ER if heart rate/palpitations occur again. Discharge Planning: >30 minutes discharge planning Discharge Instructions Discharge Diet: Regular Diet Activity as Tolerated: Yes Discharge Physical Examination Vital Signs Vital Signs Date Time Temp Pulse Resp B/P (MAP) Pulse Ox O2 Delivery O2 Flow Rate FiO2 04/21/21 09:43 04/21/21 08:15 36.6 71 16 Room Air 04/21/21 08:00 93 General Appearance: No Apparent Distress HEENT: PERRL/EOMI Respiratory: Chest Non Tender, Lungs Clear, Normal Breath Sounds Cardiovascular: Regular Rate, Rhythm Gastrointestinal: Non Tender, Soft Skin: Warm/Dry Neurologic/Psychiatric: Alert, Oriented x3 Allergies: Coded Allergies: No Known Drug Allergies (Unverified , 02/07/20) Discharge Summary Date of Admission Apr 20, 2021 at 15:41 Date of Discharge Apr 21, 2021 at 09:44 Discharge Date: Apr 21, 2021 Discharge Diagnosis (1) Tachycardia (2) Chronic kidney disease, stage 3, mod decreased GFR Assessment & Plan: near his baseline of 1.6 Qualifiers: Qualified Codes: N18.32 - Chronic kidney disease, stage 3b (3) Dizziness Status: Acute (4) CHRONIC MESSENTERIC ISCHEMIA ROBIN CALIX MD Apr 21, 2021 10:43
== END 2021-04-21 10:43 | disposition home or self-care (01) ==
LOC: EDUNIT# 14:38 → ER 14:39 → UNDOADMOB 15:41 → CSD 15:41 → UNDODISOB 04-21 09:44
PROVIDERS: ADMIT Family Medicine; ATTEND Family Medicine
DX: I48.20 Chronic atrial fibrillation, unspecified (principal); I25.10 Atherosclerotic heart disease of native coronary artery without angina pectoris; I47.1 Supraventricular tachycardia; K55.1 Chronic vascular disorders of intestine; I12.9 Hypertensive chronic kidney disease with stage 1 through stage 4 chronic kidney disease, or unspecified chronic kidney disease; N18.30 Chronic kidney disease, stage 3 unspecified; M19.90 Unspecified osteoarthritis, unspecified site; E78.5 Hyperlipidemia, unspecified; I65.29 Occlusion and stenosis of unspecified carotid artery; F17.210 Nicotine dependence, cigarettes, uncomplicated; Z95.5 Presence of coronary angioplasty implant and graft; Z79.899 Other long term (current) drug therapy; Z79.82 Long term (current) use of aspirin; Z86.73 Personal history of transient ischemic attack (TIA), and cerebral infarction without residual deficits
CPT/HCPCS: 71045; 80053 ×2; 82947; 83735; 84484; 85025; 85027; 85610; 85730; 93005 ×2; 93306; 99284; G0378; 36415

== ENCOUNTER → 2021-05-04 | Outpatient (CLI) | payer MEDICARE ==
[~2021-05-04] MED LIST changes: +AMIO200T6 PO
== END ==
LOC: CARD 11:30
PROVIDERS: ATTEND Internal Medicine Cardiovascular Disease
DX: I10 Essential (primary) hypertension (principal); I25.10 Atherosclerotic heart disease of native coronary artery without angina pectoris
CPT/HCPCS: 93306

== ENCOUNTER → 2021-06-16 | Outpatient (CLI) | payer MEDICARE ==
[~2021-06-16] MED LIST changes: -AMIO200T6 PO; +AMIO200T65 PO; +CATHETER FLUSH 10 ML SYR IV PRN; +REGADENOSON 0.4 MG/5 ML SYR (LEXISCAN) IV ONE
[2021-06-16 09:28] VITALS: BP 173/75
[2021-06-16 09:30] VITALS: BP 171/72
[2021-06-16 09:34] VITALS: BP 126/78
--- NOTE | 2021-06-16 12:49 | Cardiology Stress Test Report ---
Stress Test Report Date of Procedure/Referring: Date of Procedure: Jun 16, 2021 PCP Francheska Pretty MD Admitting Physician Robin Leiva MD Indications: HTN Baseline Heart Rate: 41 Baseline Blood Pressure: Blood Pressure Systolic: 126 Blood Pressure Diastolic: 78 Baseline Vitals Vital Signs Date Time Temp Pulse Resp B/P (MAP) Pulse Ox O2 Delivery O2 Flow Rate FiO2 06/16/21 09:28 42 18 173/75 (107) 97 Room Air Baseline EKG: Baseline EKG: Sinus bradycardia Summary After explaining the procedure to the patient, he signed a consent and then brought to the stress nuclear laboratory. Patient received 0.4 mg Lexiscan for stress test, ECG, heart rate and blood pressure were monitored continuously. Resting and stress dose of radio tracer were injected, imaging was acquired and reviewed in short axis, horizontal long axis and vertical long axis views. TID: 1.08 SSS: 1 SDS: 1 EF: 65 1. Patient tolerated Lexiscan well 2. No significant ischemia or infarction on SPECT images 3. Normal left ventricular size, EF 65% FRANCHESKA PRETTY MD Jun 16, 2021 12:49
== END ==
LOC: CARD 08:15
PROVIDERS: ATTEND Internal Medicine Cardiovascular Disease
DX: I10 Essential (primary) hypertension (principal); I25.10 Atherosclerotic heart disease of native coronary artery without angina pectoris
CPT/HCPCS: 78452; 93017; A9502

== ENCOUNTER 2021-06-29 13:35 | Outpatient (CLI) | payer MEDICARE ==
[~2021-06-29 13:35] MED LIST changes: -CATHETER FLUSH 10 ML SYR IV PRN; -REGADENOSON 0.4 MG/5 ML SYR (LEXISCAN) IV ONE
[2021-06-29 13:50] VITALS: BP 115/75
[2021-06-29] MEDS ORDERED: NS IV 1000 ML 1,000 ML ONE (14:17)
== END 2021-06-29 15:35 | disposition home or self-care (01) ==
LOC: SDC 13:35
PROVIDERS: ATTEND Family Medicine
DX: E86.0 Dehydration (principal)
CPT/HCPCS: 96360

== ENCOUNTER → 2021-07-07 | Outpatient (CLI) | payer MEDICARE ==
--- NOTE | 2021-07-07 13:14 | Diagnostic Imaging Report ---
INDICATION: Cough and congestion. EXAMINATION: PA and lateral views of the chest. FINDINGS: The heart size and vascularity are normal. Lungs are clear. There is no effusion. There is no acute bony abnormality. IMPRESSION: No acute abnormality is seen. There is no change from 10/23/2020. Dictated by: Dictated on workstation # [id number]
== END ==
LOC: RAD 11:58
PROVIDERS: ATTEND Family Medicine
DX: R09.89 Other specified symptoms and signs involving the circulatory and respiratory systems (principal); R07.81 Pleurodynia
CPT/HCPCS: 71046

== ENCOUNTER 2021-08-30 10:36 | Outpatient (RCR) | payer MEDICARE | END 2021-09-13 | disposition home or self-care (01) | PROVIDERS: ATTEND Family Medicine | DX: I69.341 Monoplegia of lower limb following cerebral infarction affecting right dominant side (principal); I69.331 Monoplegia of upper limb following cerebral infarction affecting right dominant side ==

== ENCOUNTER → 2021-10-14 | Outpatient (RCR) | payer MEDICARE | END | disposition home or self-care (01) | PROVIDERS: ATTEND Family Medicine | DX: I69.341 Monoplegia of lower limb following cerebral infarction affecting right dominant side (principal); I69.331 Monoplegia of upper limb following cerebral infarction affecting right dominant side ==

== ENCOUNTER → 2021-10-18 | Outpatient (CLI) | payer MEDICARE ==
[~2021-10-18] MED LIST changes: +GADOTERATE 0.5 MMOL/ML (CLARISCAN) 15 ML VIAL IV ONE
--- NOTE | 2021-10-18 16:36 | Diagnostic Imaging Report ---
PROCEDURE: MR imaging of the brain with and without contrast. TECHNIQUE: Multiplanar, multisequence MR imaging of the brain was performed with and without contrast. DATE: October 18, 2021. COMPARISON: CT angiography head and neck July 15, 2016. CT head without contrast April 15, 2016. HISTORY: 80-year-old male, stroke-like symptoms, weakness. FINDINGS: There is no restricted diffusion. There are no areas of abnormal intracranial susceptibility. There is proportional prominence of the ventricles and additional CSF spaces, consistent with moderate to severe cerebral volume loss. There is no abnormal extra axial fluid collection. There is no acute intracranial hemorrhage. There is no mass effect or midline shift. There are extensive and fairly confluent areas of T2 and FLAIR hyperintense signal in the periventricular and subcortical white matter which are nonspecific but most likely reflect extensive findings of chronic small vessel ischemic disease. 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 There are also chronic microvascular changes present within the haley. There is no identified abnormal intracranial enhancement. There is normal aeration of the visualized paranasal sinuses and mastoid air cells. IMPRESSION: 1. No identified acute intracranial abnormality. 2. 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 3. Extensive findings of chronic small vessel ischemic disease with moderate to severe cerebral volume loss. Dictated on workstation # [id number]
== END ==
LOC: RAD 13:15
PROVIDERS: ATTEND Physician Assistant
DX: I63.9 Cerebral infarction, unspecified (principal)
CPT/HCPCS: 70553

== ENCOUNTER → 2021-10-20 | Day surgery (SDC) | payer MEDICARE ==
[~2021-10-20] VITALS: Ht 172.7 cm; Wt 48.0 kg
[~2021-10-20] MED LIST changes: -GADOTERATE 0.5 MMOL/ML (CLARISCAN) 15 ML VIAL IV ONE; +LIDOCAINE 1% INJ 50 ML (XYLOCAINE) VIAL ONE
--- NOTE | 2021-10-20 12:14 | Implantation of Loop Monitor ---
Implant of Loop Monitior IMPLANTATION OF LOOP MONITOR REPORT DATE OF PROCEDURE: 10/20/21 PREOP DIAGNOSIS: Paroxysmal supraventricular tachycardia, paroxysmal atrial fibrillation POSTOP DIAGNOSIS: Paroxysmal atrial fibrillation PROCEDURE DETAILS: The patient is a 81 male with history of paroxysmal atrial fibrillation requiring long-term surveillance. Therefore implantable loop recorder was discussed and agreed with the patient. Informed consent was taken. All risks and complications were discussed at length. The patient was draped and prepped in the usual sterile fashion. Local anesthesia was lidocaine, which was given in the substernal area close to the 4th intercostal space. Loop monitor [employer] with serial number [id number] was implanted according to the protocol. Steri- Strips were placed at the end of the procedure. There were no complications and the patient tolerated the procedure well. The device was interrogated with a voltage of. ANESTHESIA: Local anesthesia with lidocaine. COMPLICATIONS: None CONTRAST/FLUOROSCOPY: None CONCLUSION: Successful implantation of a loop monitor with no complication FINAL DIAGNOSIS: Paroxysmal atrial tachycardia Paroxysmal atrial fibrillation Palpitation FRANCHESKA DOVE MD Oct 20, 2021 12:14
== END ==
LOC: CATH 11:30
PROVIDERS: ATTEND Internal Medicine Cardiovascular Disease
DX: I48.0 Paroxysmal atrial fibrillation (principal); I47.1 Supraventricular tachycardia; I25.10 Atherosclerotic heart disease of native coronary artery without angina pectoris; I49.5 Sick sinus syndrome; I10 Essential (primary) hypertension; I77.4 Celiac artery compression syndrome; I71.4 Abdominal aortic aneurysm, without rupture; I65.29 Occlusion and stenosis of unspecified carotid artery; I63.9 Cerebral infarction, unspecified; E78.5 Hyperlipidemia, unspecified; E78.2 Mixed hyperlipidemia; N18.30 Chronic kidney disease, stage 3 unspecified; K55.059 Acute (reversible) ischemia of intestine, part and extent unspecified; K55.1 Chronic vascular disorders of intestine; F32.9 Major depressive disorder, single episode, unspecified; Z86.73 Personal history of transient ischemic attack (TIA), and cerebral infarction without residual deficits; Z87.891 Personal history of nicotine dependence; Z79.899 Other long term (current) drug therapy
CPT/HCPCS: 33285; C1764

== ENCOUNTER → 2021-11-03 | Outpatient (CLI) | payer MEDICARE ==
[~2021-11-03] MED LIST changes: -LIDOCAINE 1% INJ 50 ML (XYLOCAINE) VIAL ONE
--- NOTE | 2021-11-03 11:01 | Diagnostic Imaging Report ---
CLINICAL INDICATION: Patient states he had low back pain for 1 week. EXAM: X-ray of the lumbar spine, 3 views. COMPARISON: MRI of the lumbar spine without contrast dated 03/18/2014. FINDINGS: There is mild left curvature of the lumbar spine centered at the L3 level. There is interval development of compression fracture deformity involving the L1 vertebra with no cortical disruption and this may be chronic. There are hypertrophic spurs throughout the lumbar spine which have progressed in the interim. There is lower lumbar spine facet arthropathy. There is multilevel loss of disk space height which is severe at the L3-L4, L4-L5, and L5-S1 levels which has progressed. An endovascular stent graft is seen involving the abdominal aorta region. There are degenerative spurs involving the sacroiliac joint. IMPRESSION: 1: There is no definite acute lumbar spine fracture or dislocation. If there is concern for an acute fracture, then a CT scan would better evaluate. 2: There is interval progression of severe multilevel lumbar spine degenerative disease. Dictated by: Dictated on workstation # [id number]
== END ==
LOC: RAD 09:33
PROVIDERS: ATTEND Family Medicine
DX: M47.816 Spondylosis without myelopathy or radiculopathy, lumbar region (principal)
CPT/HCPCS: 72100

== ENCOUNTER 2021-11-04 08:47 | Emergency (ER) | payer MEDICARE ==
[~2021-11-04] VITALS: Ht 165 cm; Wt 48.0 kg
[2021-11-04] MEDS ORDERED: LACTATED RINGERS 1,000 ML IV STA (09:46)
[2021-11-04 09:48] LABS: BASOPHILS % (AUTO) 1 % (0-10); EOSINOPHILS % (AUTO) 0 % (0-10); HEMATOCRIT 37 % (40-54); HEMOGLOBIN 12.1 g/dL (13.3-17.7); LYMPHOCYTES % (AUTO) 14 % (12-44); MEAN CORPUSCULAR HEMOGLOBIN 31 pg (25-34); MEAN CORPUSCULAR HGB CONC 33 g/dL (32-36); MEAN CORPUSCULAR VOLUME 93 fL (80-99); MEAN PLATELET VOLUME 9.6 fL (9.0-12.2); MONOCYTES # (AUTO) 0.4 10^3/uL (0.0-1.0); MONOCYTES % (AUTO) 5 % (0-12); NEUTROPHILS # (AUTO) 5.8 10^3/uL (1.8-7.8); NEUTROPHILS % (AUTO) 80 % (42-75); PLATELET COUNT 257 10^3/uL (130-400); WHITE BLOOD COUNT 7.3 10^3/uL (4.3-11.0)
[2021-11-04] MEDS ORDERED: ONDANSETRON 4 MG/2 ML (SDV) Z0FRAN IVP ONE (10:00)
[2021-11-04 10:04] LABS: ALBUMIN 2.9 GM/DL (3.2-4.5); POTASSIUM 3.9 MMOL/L (3.6-5.0)
[2021-11-04 10:05] LABS: PROTHROMBIN TIME PATIENT 13.1 SEC (12.2-14.7)
[2021-11-04 10:07] LABS: TOTAL PROTEIN 7.2 GM/DL (6.4-8.2)
[2021-11-04 10:08] LABS: BILIRUBIN,TOTAL 1.2 MG/DL (0.1-1.0)
[2021-11-04 10:10] LABS: CREATININE SERUM 1.84 MG/DL (0.60-1.30)
--- NOTE | 2021-11-04 10:58 | ED General ---
General Chief Complaint: Abdominal/GI Problems Stated Complaint: ABD PAIN,BACK PAIN Nursing Triage Note: PT TO [facility] 7 WITH CC OF ABD PAIN ANDBACK PAIN. PT HAD A STROKE WITH RT SIDE WEAKNESS THE FIRST PART OF JUNE AND HAS BEEN GOING [place] SINCE. WEAKNESS LED TO PT FALLING ON MONDAY AND MONDAY CAUSING PAIN IN LOWER BACK, DENIES HEAD OR NECK PAIN. LOSS OF APPITITE FOR A WHILE, PT DRY HEAVING AT TRIAGE. Source of Information: Patient, Family Exam Limitations: No Limitations History of Present Illness Date Seen by Provider: Nov 04, 2021 Time Seen by Provider: 08:53 Initial Comments 81-year-old male with past medical history of chronic mesenteric ischemia most notably coming in with family after he had a fall on Monday slipping landing on his bottom while trying to go to the bathroom. Did not hit his head or pass out. Has been off since then and does have some lower back pain. He does have chronic abdominal pain which is really unchanged. Has had some nausea today which is a bit unusual for him. Denies any headache, vision changes, chest pain, shortness of breath, changes to his abdominal pain, diarrhea, focal weakness, numbness, or any other concerns. He has been taking all of his medications as prescribed. Allergies and Home Medications Allergies Coded Allergies: No Known Drug Allergies (Unverified , 02/07/20) Patient Home Medication List Home Medication List Reviewed: Yes Amiodarone HCl (Amiodarone HCl) 200 Mg Tablet, 200 MG PO BID Prescribed by: FRANCHESKA DOVE on 04/21/21 0901 Amlodipine Besylate (Amlodipine Besylate) 5 Mg Tablet, (Reported) Entered as Reported by: MARINO NEWMAN on 01/30/16 1527 Aspirin (Aspir 81) 81 Mg Tablet.dr, 81 MG PO DAILY, (Reported) Entered as Reported by: MARLEN NEELY on 02/07/20 0945 Atorvastatin Calcium (Atorvastatin Calcium) 20 Mg Tablet, (Reported) Entered as Reported by: MARINO NEWMAN on 01/30/16 1527 Metoprolol Succinate (Metoprolol Succinate) 50 Mg Tab.er.24h, (Reported) Entered as Reported by: MARINO NEWMAN on 01/30/16 1527 Prasugrel HCl (Effient) 10 Mg Tablet, (Reported) Entered as Reported by: MARINO NEWMAN on 01/30/16 1527 Tamsulosin HCl (Tamsulosin HCl) 0.4 Mg Cap.er.24h, (Reported) Entered as Reported by: MARINO NEWMAN on 01/30/16 1527 Review of Systems Review of Systems Constitutional: No chills, No fever EENTM: No blurred vision Respiratory: No cough Cardiovascular: No chest pain Gastrointestinal: abdominal pain Genitourinary: no symptoms reported Musculoskeletal: back pain Skin: no symptoms reported Psychiatric/Neurological: No Symptoms Reported Hematologic/Lymphatic: No Symptoms Reported Immunological/Allergic: no symptoms reported All Other Systems Reviewed Negative Unless Noted: Yes Past Sywjehi-Xgrppu-Ebaufe Hx Patient Social History Tobacco Use?: Yes Tobacco type used: Cigarettes Smoking Status: Current Everyday Smoker Substance use?: No Alcohol Use?: No Immunizations Up To Date Tetanus Booster (TDap): Unknown First/Initial COVID19 Vaccinat: AUG 28 Second COVID19 Vaccination Zenon: SEPTEMBER 25 Third COVID19 Vaccination Date: AUG 28 Past Medical History Surgery/Hospitalization HX: AAA, CARD STENTS, AMI, LOOP RECORDER Surgeries: Yes Coronary Stent Respiratory: No Currently Using CPAP: No Currently Using BIPAP: No Cardiac: Yes (X4 STENTS) Coronary Artery Disease Neurological: Yes Stroke Reproductive Disorders: No Genitourinary: No Gastrointestinal: No Arthritis Cancer: No Blood Disorders: No Family Medical History Kidney disease 19 FATHER Physical Exam Vital Signs Vital Signs - First Documented 11/04/21 09:13 Temp 36.2 Pulse 64 Resp 18 B/P (MAP) 119/73 (88) O2 Delivery Room Air Capillary Refill : Height, Weight, BMI Height: 5'8.00" Weight: 152lbs. 6.4oz. [id number]; 17.00 BMI Method:Stated General Appearance: No Apparent Distress, Chronically ill Eyes: Bilateral Eye Normal Inspection, Bilateral Eye PERRL HEENT: PERRL/EOMI, Normal ENT Inspection, Pharynx Normal Neck: Full Range of Motion, Normal Inspection, Non Tender, Supple Respiratory: Chest Non Tender, Lungs Clear, Normal Breath Sounds, No Accessory Muscle Use, No Respiratory Distress Cardiovascular: Regular Rate, Rhythm, No Edema, Normal Peripheral Pulses Gastrointestinal: Normal Bowel Sounds, Non Tender, Soft; No Distended, No Guarding Back: Normal Inspection, No CVA Tenderness, Other (low back pain) Extremity: Normal Capillary Refill, Normal Inspection, Normal Range of Motion, Non Tender, No Calf Tenderness, No Pedal Edema Neurologic/Psychiatric: Alert, Oriented x3, No Motor/Sensory Deficits, Normal Mood/Affect, consulting database administrator II-XII Norm as Tested Skin: Normal Color, Warm/Dry Lymphatic: No Adenopathy Focused Exam Lactate Level 11/04/21 10:05: Lactic Acid Level 1.80 Lactic Acid Level Laboratory Tests Test 11/04/21 10:05 Lactic Acid Level 1.80 MMOL/L (0.50-2.00) Progress/Results/Core Measures Suspected Sepsis SIRS Temperature: Pulse: 64 Respiratory Rate: 18 Laboratory Tests 11/04/21 09:35: White Blood Count 7.3 Blood Pressure 119 /73 Mean: 88 11/04/21 10:05: Lactic Acid Level 1.80 Laboratory Tests 11/04/21 09:35: Creatinine 1.84H, INR Comment 1.0, Platelet Count 257, Total Bilirubin 1.2H Results/Orders Lab Results Laboratory Tests Test 11/04/21 09:35 11/04/21 10:05 Range/Units White Blood Count 7.3 4.3-11.0 10^3/uL Red Blood Count 3.95 L 4.30-5.52 10^6/uL Hemoglobin 12.1 L 13.3-17.7 g/dL Hematocrit 37 L 40-54 % Mean Corpuscular Volume 93 80-99 fL Mean Corpuscular Hemoglobin 31 25-34 pg Mean Corpuscular Hemoglobin Concent 33 32-36 g/dL Red Cell Distribution Width 16.7 H 10.0-14.5 % Platelet Count 257 130-400 10^3/uL Mean Platelet Volume 9.6 9.0-12.2 fL Immature Granulocyte % (Auto) 0 % Neutrophils (%) (Auto) 80 H 42-75 % Lymphocytes (%) (Auto) 14 12-44 % Monocytes (%) (Auto) 5 0-12 % Eosinophils (%) (Auto) 0 0-10 % Basophils (%) (Auto) 1 0-10 % Neutrophils # (Auto) 5.8 1.8-7.8 10^3/uL Lymphocytes # (Auto) 1.0 1.0-4.0 10^3/uL Monocytes # (Auto) 0.4 0.0-1.0 10^3/uL Eosinophils # (Auto) 0.0 0.0-0.3 10^3/uL Basophils # (Auto) 0.0 0.0-0.1 10^3/uL Immature Granulocyte # (Auto) 0.0 0.0-0.1 10^3/uL Prothrombin Time 13.1 12.2-14.7 SEC INR Comment 1.0 0.8-1.4 Activated Partial Thromboplast Time 30 24-35 SEC Sodium Level 138 135-145 MMOL/L Potassium Level 3.9 3.6-5.0 MMOL/L Chloride Level 101 98-107 MMOL/L Carbon Dioxide Level 22 21-32 MMOL/L Anion Gap 15 H 5-14 MMOL/L Blood Urea Nitrogen 23 H 7-18 MG/DL Creatinine 1.84 H 0.60-1.30 MG/DL Estimat Glomerular Filtration Rate 36 BUN/Creatinine Ratio 13 Glucose Level 96 70-105 MG/DL Calcium Level 9.0 8.5-10.1 MG/DL Corrected Calcium 9.9 8.5-10.1 MG/DL Total Bilirubin 1.2 H 0.1-1.0 MG/DL Aspartate Amino Transf (AST/SGOT) 34 5-34 U/L Alanine Aminotransferase (ALT/SGPT) 29 0-55 U/L Alkaline Phosphatase 98 40-136 U/L Total Protein 7.2 6.4-8.2 GM/DL Albumin 2.9 L 3.2-4.5 GM/DL Lipase 6 L 8-78 U/L Lactic Acid Level 1.80 0.50-2.00 MMOL/L My Orders Orders - KADI SHINE MD Lactic Acid Analyzer (11/04/21 09:35) Protime With Inr (11/04/21 09:35) Partial Thromboplastin Time (11/04/21 09:35) Comprehensive Metabolic Panel (11/04/21 09:35) Lipase (11/04/21 09:35) Ua Culture If Indicated (11/04/21 09:35) Cbc With Automated Diff (11/04/21 09:35) Lactated Ringers (Lr 1000 Ml Iv Solution (11/04/21 09:46) Ondansetron Injection (Zofran Injectio (11/04/21 10:00) Ct Abd/Pelvis Wo(Kidney Stone) (11/04/21 10:28) Ct Head Wo (11/04/21 10:28) Ct Thoracic/Lumbar Spine Wo (11/04/21 10:28) Medications Given in ED Current Medications Medications Dose Ordered Sig/Erik Route Start Time Stop Time Status Last Admin Dose Admin Ondansetron HCl 4 mg ONCE ONCE IVP 11/04/21 10:00 11/04/21 10:01 DC 11/04/21 10:10 4 MG Vital Signs/I&O 11/04/21 09:13 Temp 36.2 Pulse 64 Resp 18 B/P (MAP) 119/73 (88) O2 Delivery Room Air Capillary Refill : Blood Pressure Mean: 88 Progress Note : Progress Note 81-year-old male with above history coming in due to low back pain after a fall on Monday. ABCs were intact and vitals were stable on presentation. Physical exam with low back pain more just off midline. Basic labs including lactate normal making his mesenteric ischemia less likely because of his symptoms. CT head, thoracic, lumbar, abdomen and pelvis without contrast ordered due to his kidney function which is chronically poor. He does appear to have some chronic compression fractures but does appear to have an L1 subacute to acute compression fracture with 30% loss of height. I contacted Dr. Bauer, spine surgery at [facility] to discuss the case. The patient is wanting to go home which she is agreeable to. She says he can follow-up with his primary for pain control and therapy orders. If he is ever interested in surgery he can follow-up with her which I will give that number. I offered the patient admission for pain control and observation, and he is adamant that he would like to go home. Diagnostic Imaging Diagonstic Imaging: CT (head, thoracic, lumbar, abd/pelv) Comments [facility] [place], [place] NAME: LAWRENCE [facility]ESUS [facility] REC#: [id number] PT STATUS: REG ER : 1940 PHYSICIAN: KADI SHINE MD ADMIT DATE: 11/04/21/ER Draft Date of Exam:11/04/21 CT ABD/PELVIS WO(KIDNEY STONE) EXAMINATION: CT abdomen and pelvis without contrast. TECHNIQUE: Multiple contiguous axial images were obtained through the abdomen and pelvis without the use of intravenous contrast. All CT scans use one or more of the following dose optimizing techniques: automated exposure control, MA and/or KvP adjustment based on patient size and exam type or iterative reconstruction. HISTORY: Flank pain COMPARISON: 01/28/2019 FINDINGS: Limited views of the lower thorax show reticular opacities and may represent atelectasis or fibrosis. Coronary arteries are severely calcified. The liver is normal without focal lesion. There is no biliary ductal dilation. Gallbladder contains stones. No evidence of cholecystitis. Pancreas is normal. Spleen is normal. Calcifications in the right adrenal gland are likely related to prior hemorrhage or infection. There are cysts in the right kidney. Right kidney is mildly atrophic. There are renal vascular calcifications. There may be few tiny nonobstructing stones but these are difficult to differentiate between vascular calcifications. No ureteral stones are seen. There is no hydronephrosis. Urinary bladder is normal. Bowel is normal in caliber without obstruction or inflammation. There is a small hiatal hernia. No free fluid or air. No abdominal or pelvic lymphadenopathy. There has been an endovascular repair of an abdominal aortic aneurysm. The excluded sac measures 7.3 x 6.3 cm, previously 6.8 x 6.6 cm. This is felt to be unchanged given differences in positioning. There are no suspicious osseus lesions. IMPRESSION: 1. No ureteral stones or hydronephrosis. 2. Endovascular repair of abdominal aortic aneurysm. Excluded sac is felt to be unchanged given differences in positioning. Dictated on workstation # [id number] Dict: 11/04/21 1058 Trans: 11/04/21 1105 STACI [id number] Interpreted by: JULIETTE ROSSI MD Electronically signed by: [employer] [employer], [place] NAME: LAWRENCE [facility]JESUS [facility] REC#: [id number] PT STATUS: REG ER : 1940 PHYSICIAN: KADI SHINE MD ADMIT DATE: 11/04/21/ER Draft Date of Exam:11/04/21 CT HEAD WO PROCEDURE: CT head without contrast. TECHNIQUE: Multiple contiguous axial images were obtained through the brain without the use of intravenous contrast. Auto Exposure Controls were utilized during the CT exam to meet ALARA standards for radiation dose reduction. INDICATION: Generalized weakness. Recent fall. COMPARISON: MRI brain of 10/18/2021 FINDINGS:No intracranial hyperdense hemorrhage or space-occupying mass. No hydrocephalus or midline shift. Stable encephalomalacia and/or old lacunar infarct in the left watts radiata. Periventricular hypoattenuation is unchanged and compatible with chronic microvascular ischemic disease. No skull fracture. Paranasal sinuses and mastoid air cells are clear. IMPRESSION: No acute intracranial process by CT. Dictated on workstation # [id number] Dict: 11/04/21 1059 Trans: 11/04/21 1110 [facility] [id number] Interpreted by: GALLITO BERMUDEZ MD Electronically signed by: [employer] [facility] [employer] [place] NAME: LAWRENCE [facility]JES[facility] REC#: [id number] PT STATUS: REG ER : 1940 PHYSICIAN: KADI SHINE MD ADMIT DATE: 11/04/21/ER Draft Date of Exam:11/04/21 CT THORACIC/LUMBAR SPINE WO PROCEDURE: CT thoracic and lumbar spine without contrast. TECHNIQUE: Multiple contiguous axial images were obtained through the thoracic and lumbar spine without the use of intravenous contrast. Sagittal and coronal reformations were then performed. All CT scans use one or more of the following dose optimizing techniques: automated exposure control, MA and/or KvP adjustment based on a patient size and exam type, or iterative reconstruction. INDICATION: Multiple falls. Low back pain. COMPARISON: CTA abdomen 01/28/2019. Two-view chest radiograph 07/07/2021. FINDINGS: Grade 1 anterolisthesis of T3 on T4. Alignment of the thoracic and lumbar spine is otherwise normal. Anterior wedging of the T4 vertebral body results in approximately 20% height loss with no retropulsion or involvement of posterior elements. This appears stable compared to 07/07/2021. There is chronic appearing height loss of T7-T9 of approximately 10%. Inferior endplate fracture of L1 with probable acute appearing fracture line along the right margin. This results in approximately 30% height loss with no retropulsion or involvement of the posterior elements identified. More age-indeterminate height loss of the L4 vertebral body approximately 10% without retropulsion or involvement of posterior elements. Although this fracture is more likely chronic, it is new compared to 01/28/2019. Moderate scattered degenerative endplate changes in the mid thoracic and lower lumbar spine. Moderate lower lumbar facet arthropathy. Spondylotic changes likely result in at least moderate spinal canal stenosis at L4-L5. No other high-grade spinal canal stenosis is evident by noncontrast CT in the thoracic or lumbar spine. The visualized pelvis appears intact. Partially visualized aortobiiliac stent graft. Partially visualized cholelithiasis. Right adrenal gland calcifications. Nonspecific cysts in the right kidney. Moderate esophageal hiatal hernia. Emphysematous changes in the lungs. Chronic right rib fractures. IMPRESSION: 1. Compression fracture of L1 results in approximately 30% height loss and is most likely acute to subacute. This could be further investigated with MRI. 2. Compression fractures of T4, T7-T9 and L4 are more likely chronic but also technically age indeterminate. 3. Spondylotic changes likely result in high-grade spinal canal stenosis at L4-L5. This could also be better evaluated with MRI. Dictated on workstation # [id number] Dict: 11/04/21 1104 Trans: 11/04/21 1118 [id number] Interpreted by: LANCE ONTIVEROS MD Electronically signed by: Departure Impression Primary Impression: Compression fracture of L1 lumbar vertebra Qualified Codes: S32.010A - Wedge compression fracture of first lumbar vertebra, initial encounter for closed fracture Disposition: 01 HOME, SELF-CARE Condition: Stable Departure-Patient Inst. Decision time for Depature: 11:48 Referrals: FAIZAN CALIX MD (PCP/Family) Primary Care Physician Patient Instructions: Vertebral Compression Fracture (DC) Add. Discharge Instructions: I contacted the spine surgeon from [place] at [facility], Dr. Bauer, and discussed the case with her. She said continue to do therapy, do not lift anything more than 10 pounds. Follow-up with your regular doctor for pain control. If things worsen and you are ever interested in surgery because of pain then you can call her office at [phone]. KADI SHINE MD Nov 04, 2021 10:58
--- NOTE | 2021-11-04 11:05 | Diagnostic Imaging Report ---
EXAMINATION: CT abdomen and pelvis without contrast. TECHNIQUE: Multiple contiguous axial images were obtained through the abdomen and pelvis without the use of intravenous contrast. All CT scans use one or more of the following dose optimizing techniques: automated exposure control, MA and/or KvP adjustment based on patient size and exam type or iterative reconstruction. HISTORY: Flank pain COMPARISON: 01/28/2019 FINDINGS: Limited views of the lower thorax show reticular opacities and may represent atelectasis or fibrosis. Coronary arteries are severely calcified. The liver is normal without focal lesion. There is no biliary ductal dilation. Gallbladder contains stones. No evidence of cholecystitis. Pancreas is normal. Spleen is normal. Calcifications in the right adrenal gland are likely related to prior hemorrhage or infection. There are cysts in the right kidney. Right kidney is mildly atrophic. There are renal vascular calcifications. There may be few tiny nonobstructing stones but these are difficult to differentiate between vascular calcifications. No ureteral stones are seen. There is no hydronephrosis. Urinary bladder is normal. Bowel is normal in caliber without obstruction or inflammation. There is a small hiatal hernia. No free fluid or air. No abdominal or pelvic lymphadenopathy. There has been an endovascular repair of an abdominal aortic aneurysm. The excluded sac measures 7.3 x 6.3 cm, previously 6.8 x 6.6 cm. This is felt to be unchanged given differences in positioning. There are no suspicious osseus lesions. IMPRESSION: 1. No ureteral stones or hydronephrosis. 2. Endovascular repair of abdominal aortic aneurysm. Excluded sac is felt to be unchanged given differences in positioning. Dictated by: Dictated on workstation # [id number]
--- NOTE | 2021-11-04 11:10 | Diagnostic Imaging Report ---
PROCEDURE: CT head without contrast. TECHNIQUE: Multiple contiguous axial images were obtained through the brain without the use of intravenous contrast. Auto Exposure Controls were utilized during the CT exam to meet ALARA standards for radiation dose reduction. INDICATION: Generalized weakness. Recent fall. COMPARISON: MRI brain of 10/18/2021 FINDINGS:No intracranial hyperdense hemorrhage or space-occupying mass. No hydrocephalus or midline shift. Stable encephalomalacia and/or old lacunar infarct in the left watts radiata. Periventricular hypoattenuation is unchanged and compatible with chronic microvascular ischemic disease. No skull fracture. Paranasal sinuses and mastoid air cells are clear. IMPRESSION: No acute intracranial process by CT. Dictated by: Dictated on workstation # [id number]
--- NOTE | 2021-11-04 11:19 | Diagnostic Imaging Report ---
PROCEDURE: CT thoracic and lumbar spine without contrast. TECHNIQUE: Multiple contiguous axial images were obtained through the thoracic and lumbar spine without the use of intravenous contrast. Sagittal and coronal reformations were then performed. All CT scans use one or more of the following dose optimizing techniques: automated exposure control, MA and/or KvP adjustment based on a patient size and exam type, or iterative reconstruction. INDICATION: Multiple falls. Low back pain. COMPARISON: CTA abdomen 01/28/2019. Two-view chest radiograph 07/07/2021. FINDINGS: Grade 1 anterolisthesis of T3 on T4. Alignment of the thoracic and lumbar spine is otherwise normal. Anterior wedging of the T4 vertebral body results in approximately 20% height loss with no retropulsion or involvement of posterior elements. This appears stable compared to 07/07/2021. There is chronic appearing height loss of T7-T9 of approximately 10%. Inferior endplate fracture of L1 with probable acute appearing fracture line along the right margin. This results in approximately 30% height loss with no retropulsion or involvement of the posterior elements identified. More age-indeterminate height loss of the L4 vertebral body approximately 10% without retropulsion or involvement of posterior elements. Although this fracture is more likely chronic, it is new compared to 01/28/2019. Moderate scattered degenerative endplate changes in the mid thoracic and lower lumbar spine. Moderate lower lumbar facet arthropathy. Spondylotic changes likely result in at least moderate spinal canal stenosis at L4-L5. No other high-grade spinal canal stenosis is evident by noncontrast CT in the thoracic or lumbar spine. The visualized pelvis appears intact. Partially visualized aortobiiliac stent graft. Partially visualized cholelithiasis. Right adrenal gland calcifications. Nonspecific cysts in the right kidney. Moderate esophageal hiatal hernia. Emphysematous changes in the lungs. Chronic right rib fractures. IMPRESSION: 1. Compression fracture of L1 results in approximately 30% height loss and is most likely acute to subacute. This could be further investigated with MRI. 2. Compression fractures of T4, T7-T9 and L4 are more likely chronic but also technically age indeterminate. 3. Spondylotic changes likely result in high-grade spinal canal stenosis at L4-L5. This could also be better evaluated with MRI. Dictated by: Dictated on workstation # [id number]
[2021-11-04 12:01] VITALS: BP 163/80
== END 2021-11-04 12:01 | disposition home or self-care (01) ==
LOC: EDUNIT# 08:47 → ER 08:49
DX: S32.010A Wedge compression fracture of first lumbar vertebra, initial encounter for closed fracture (principal); R10.9 Unspecified abdominal pain; R11.0 Nausea; F17.210 Nicotine dependence, cigarettes, uncomplicated; W01.0XXA Fall on same level from slipping, tripping and stumbling without subsequent striking against object, initial encounter
CPT/HCPCS: 36415; 70450; 72128; 72131; 74176; 80053; 83605; 83690; 85025; 85610; 85730

== ENCOUNTER 2021-11-08 13:24 | Outpatient (RCR) | payer MEDICARE | END 2021-11-13 | disposition home or self-care (01) | PROVIDERS: ATTEND Family Medicine | DX: I69.341 Monoplegia of lower limb following cerebral infarction affecting right dominant side (principal); I69.331 Monoplegia of upper limb following cerebral infarction affecting right dominant side ==

== ENCOUNTER → 2021-11-08 | Outpatient (CLI) | payer MEDICARE ==
--- NOTE | 2021-11-08 10:06 | Diagnostic Imaging Report ---
PROCEDURE: US Abdomen, limited. TECHNIQUE: Multiple Real-time grayscale images were obtained over the abdomen in various projections. INDICATION: History of abdominal aortic aneurysm with endoluminal stent repair. COMPARISON: CT scan of 11/04/2021. FINDINGS: Aneurysmal dilatation of the distal aorta is again noted with the tribal sac measuring 6.4 cm. This previously measured 7.[address] scan. The lumen appears patent with Doppler sampling. The SMA and celiac artery were not visualized on this exam. There is flow noted into the iliac arteries. IMPRESSION: Endoluminal stent graft present appearing patent with good flow. The SMA and celiac artery were not identified on this exam. Dictated by: Dictated on workstation # [id number]
== END ==
LOC: RAD 11-03 09:00
PROVIDERS: ATTEND Nurse Practitioner
DX: I71.4 Abdominal aortic aneurysm, without rupture (principal); K55.1 Chronic vascular disorders of intestine
CPT/HCPCS: 76705

== ENCOUNTER 2022-04-15 08:53 | Observation (INO) | payer MEDICARE ==
[~2022-04-15] VITALS: Ht 170 cm; Wt 42.5 kg
[~2022-04-15 08:53] MED LIST changes: -ATOR20TA66; +ATOR20TA66 PO
[2022-04-15] MEDS ORDERED: LIDOCAINE/EPI 2% 1:200,00 (XYLOCAINE) 10 ML VIAL ONE (09:12)
[2022-04-15] MEDS ORDERED: RIVA20TA PO (09:22)
[2022-04-15] MEDS ORDERED: DRON400T6 PO ×2 (09:22→15:34)
[2022-04-15] MEDS ORDERED: MIRT-68 PO (09:22)
[2022-04-15] MEDS ORDERED: ESCI20TA39 PO (09:22)
--- NOTE | 2022-04-15 09:25 | ED Fall/Injury ---
General Chief Complaint: Trauma-Non Activation Stated Complaint: FALL/FACIAL INJURIES Nursing Triage Note: PT'S DAUGHTER WITH PT, STATES PT FELL WITH HIS WALKER LAST NIGHT, CC OF LAC ABOVE RT EYE, STERI STRIP APPLIED AT HOME, WOUND STARTED BLEEDING AGAIN THIS A.M. PT DENIES PAIN ANYWHERE ELSE, PT UNABLE TO STAND ON HIS OWN. SAW PT FALL AND DENIES ANY LOC. Source: patient, family Exam Limitations: no limitations History of Present Illness Date Seen by Provider: Apr 15, 2022 Time Seen by Provider: 09:12 Initial Comments Patient is an 81yo male to the ER with a complaint of bleeding all night. Had a mechanical trip and fall yesterday at about 4:30pm. witnessed the fall. No LOC reported. She states that he was recently started on Xarelto by Dr Pretty's office. He did suffer a small "laceration" to right lateral eyebrow. states that they were able to get bleeding under controlled last night but they woke up this morning and the bed was "full of blood". Both the and the daughter did not realize that the Xarelto was a blood thinner. He has extensive cardiac disease and suffered a stroke in May of last year. Left him with some speech difficulty and some left sided weakness (that seems to be improved at this time). Patient has no complaints of neck pain. Mild headache. No chest pain, SOB, a bdominal pain, N/V. no new arm weakness, numbness or tingling. All other ROS reviewed and negative except as stated, Occurred: yesterday Severity: moderate Injuries/Pain Location: head, face Context: lost balance, tripped Loss of Consciousness: no loss of consciousness Associated Symptoms (Fall): Headache Allergies and Home Medications Allergies Coded Allergies: No Known Drug Allergies (Unverified , 02/07/20) Patient Home Medication List Home Medication List Reviewed: Yes Atorvastatin Calcium (Atorvastatin Calcium) 20 Mg Tablet, 20 MG PO HS, (Reported) Entered as Reported by: MARINO NEWMAN on 01/30/161526 Last Action: Reviewed Docusate Sodium (Docusate Sodium) 100 Mg Capsule, 100 MG PO DAILY PRN for CONSTIPATION-1ST LINE, (Reported) Entered as Reported by: LÁZARO ACOSTA on 04/15/22 1534 Last Action: Reviewed Dronedarone HCl (Multaq) 400 Mg Tablet, 400 MG PO BID, (Reported) Entered as Reported by: STACIE LOVE on 04/15/22921 Last Action: Reviewed Escitalopram Oxalate (Escitalopram Oxalate) 20 Mg Tablet, 20 MG PO HS, (Reported) Entered as Reported by: STACIE LOVE on 04/15/22921 Last Action: Reviewed Mirtazapine (Mirtazapine) 15 Mg Tablet, 15 MG PO HS, (Reported) Entered as Reported by: STACIE LOVE on 04/15/22921 Last Action: Reviewed Rivaroxaban (Xarelto) 20 Mg Tablet, 20 MG PO HS, (Reported) Entered as Reported by: STACIE LOVE on 04/15/22921 Last Action: Reviewed Tamsulosin HCl (Flomax) 0.4 Mg Cap, 0.4 MG PO DAILY, (Reported) Entered as Reported by: LÁZARO ACOSTA on 04/15/221533 Last Action: Reviewed Discontinued Medications Amiodarone HCl (Amiodarone HCl) 200 Mg Tablet, 200 MG PO BID Discontinued Reason: No Longer Taking Prescribed by: FRANCHESKA PRETTY on 04/21/21 0901 Last Action: Discontinued Amlodipine Besylate (Amlodipine Besylate) 5 Mg Tablet, (Reported) Discontinued Reason: No Longer Taking Entered as Reported by: MARINO NEWMAN on 01/30/161526 Last Action: Discontinued Aspirin (Aspir 81) 81 Mg Tablet.dr, 81 MG PO DAILY, (Reported) Discontinued Reason: No Longer Taking Entered as Reported by: MARLEN NEELY on 02/07/20 0945 Last Action: Discontinued Dronedarone HCl (Multaq) 400 Mg Tablet, 400 MG PO BID, (Reported) Discontinued Reason: Duplicate Order Entered as Reported by: LÁZARO ACOSTA on 04/15/221533 Last Action: Discontinued Metoprolol Succinate (Metoprolol Succinate) 50 Mg Tab.er.24h, (Reported) Discontinued Reason: No Longer Taking Entered as Reported by: MARINO NEWMAN on 01/30/161526 Last Action: Discontinued Prasugrel HCl (Effient) 10 Mg Tablet, (Reported) Discontinued Reason: No Longer Taking Entered as Reported by: MARINO NEWMAN on 01/30/161526 Last Action: Discontinued Tamsulosin HCl (Tamsulosin HCl) 0.4 Mg Cap.er.24h, (Reported) Discontinued Reason: Duplicate Order Entered as Reported by: MARINO TRENT on 01/30/16 1527 Last Action: Discontinued Review of Systems Review of Systems Constitutional: see HPI Eyes: No Symptoms Reported Ears, Nose, Mouth, Throat: no symptoms reported Respiratory: no symptoms reported Cardiovascular: no symptoms reported Gastrointestinal: no symptoms reported Genitourinary: no symptoms reported Musculoskeletal: no symptoms reported Skin: other (abrasions) Psychiatric/Neurological: No Symptoms Reported All Other Systems Reviewed Negative Unless Noted: Yes Past Undjank-Nutplw-Gxuqpc Hx Patient Social History Tobacco type used: Cigars Smoking Status: Current Everyday Smoker Substance use?: No Alcohol Use?: No Immunizations Up To Date Tetanus Booster (TDap): Unknown First/Initial COVID19 Vaccinat: AUG 28 Second COVID19 Vaccination [place]: SEPTEMBER 25 Third COVID19 Vaccination Date: AUG 28 Past Medical History Surgery/Hospitalization HX: AAA, CARD STENTS, AMI, LOOP RECORDER Surgeries: Yes Coronary Stent Respiratory: No Currently Using CPAP: No Currently Using BIPAP: No Cardiac: Yes (X4 STENTS) Coronary Artery Disease Neurological: Yes Stroke Reproductive Disorders: No Genitourinary: No Gastrointestinal: No Arthritis Cancer: No Blood Disorders: No Family Medical History Kidney disease 19 FATHER Physical Exam Vital Signs Vital Signs - First Documented 04/15/22 09:01 Temp 35.8 Pulse 81 Resp 16 B/P (MAP) 89/62 (71) Pulse Ox 95 O2 Delivery Room Air Capillary Refill : Less Than 3 Seconds Height, Weight, BMI Height: 5'8.00" Weight: 152lbs. 6.4oz. [id number]; 14.00 BMI Method:Stated General Appearance: cachetic, thin HEENT: PERRL/EOMI, normal ENT inspection, TMs normal, pharynx normal, pale conjunctivae (R), pale conjunctivae (L) Neck: non-tender, normal inspection Respiratory: chest non-tender, lungs clear, normal breath sounds, no respiratory distress, no accessory muscle use Gastrointestinal: non tender, soft Extremities: normal range of motion, non-tender, normal inspection Neurologic/Psychiatric: alert, normal mood/affect, oriented x 3 Skin: warm/dry, pallor, other (bruising to right zygoma and right lateral eye/jehovah's witness) [place] Coma Score Best Eye Response: (4) Open Spontaneously Best Verbal Response: (5) Oriented Best Motor Response: (6) Obeys Commands Progress/Results/Core Measures Results/Orders Lab Results Laboratory Tests Test 04/15/22 09:50 Range/Units White Blood Count 8.5 4.3-11.0 10^3/uL Red Blood Count 2.88 L 4.30-5.52 10^6/uL Hemoglobin 8.5 L 13.3-17.7 g/dL Hematocrit 27 L 40-54 % Mean Corpuscular Volume 92 80-99 fL Mean Corpuscular Hemoglobin 30 25-34 pg Mean Corpuscular Hemoglobin Concent 32 32-36 g/dL Red Cell Distribution Width 17.0 H 10.0-14.5 % Platelet Count 239 130-400 10^3/uL Mean Platelet Volume 9.8 9.0-12.2 fL Immature Granulocyte % (Auto) 0 % Neutrophils (%) (Auto) 77 H 42-75 % Lymphocytes (%) (Auto) 16 12-44 % Monocytes (%) (Auto) 6 0-12 % Eosinophils (%) (Auto) 0 0-10 % Basophils (%) (Auto) 0 0-10 % Neutrophils # (Auto) 6.6 1.8-7.8 10^3/uL Lymphocytes # (Auto) 1.4 1.0-4.0 10^3/uL Monocytes # (Auto) 0.5 0.0-1.0 10^3/uL Eosinophils # (Auto) 0.0 0.0-0.3 10^3/uL Basophils # (Auto) 0.0 0.0-0.1 10^3/uL Immature Granulocyte # (Auto) 0.0 0.0-0.1 10^3/uL Sodium Level 139 135-145 MMOL/L Potassium Level 4.1 3.6-5.0 MMOL/L Chloride Level 98 98-107 MMOL/L Carbon Dioxide Level 26 21-32 MMOL/L Anion Gap 15 H 5-14 MMOL/L Blood Urea Nitrogen 32 H 7-18 MG/DL Creatinine 1.66 H 0.60-1.30 MG/DL Estimat Glomerular Filtration Rate 41 BUN/Creatinine Ratio 19 Glucose Level 108 H 70-105 MG/DL Calcium Level 9.1 8.5-10.1 MG/DL My Orders Orders - NAVEED PURDY MD Lidocaine/Epi Mpf 2% 1:200,000 (Xylocain (9/30/22 09:12) Ed Iv/Invasive Line Start (04/15/22 09:25) Cbc With Automated Diff (04/15/22 09:25) Basic Metabolic Panel (04/15/22 09:25) Ct Head/Cervical Spine Wo (04/15/22 09:25) Ns Iv 500 Ml (Sodium Chloride 0.9%) (04/15/22 11:15) Ed Admission (Communication) (04/15/22 11:36) General/Regular (04/15/22 Lunch) Medications Given in ED Vital Signs/I&O 04/15/22 09:01 Temp 35.8 Pulse 81 Resp 16 B/P (MAP) 89/62 (71) Pulse Ox 95 O2 Delivery Room Air Blood Pressure Mean: 71 Progress Progress Note : Time: :30 Progress Note I used about 2ml of Lidocaine with epi in the area of bleeding. direct pressure applied. Consideing a Vicryl stitch to the area, however I do not want to create more bleeding by stitching the area. Discussed with Dr Graf at about 11:20 am - will admit for observation. Hgb soomewhat lower than previous, and in light of hypotension - will admit Diagnostic Imaging Diagonstic Imaging: CT Comments [facility], [place] NAME: [facility] REC#: [id number] PT STATUS: REG ER : 1940 PHYSICIAN: NAVEED PURDY MD ADMIT DATE: 04/15/22/ER Draft Date of Exam:04/15/22 CT HEAD/CERVICAL SPINE WO PROCEDURE: CT head and CT cervical spine without contrast. TECHNIQUE: Multiple contiguous axial images were obtained through the brain and cervical spine without the use of intravenous contrast. Sagittal and coronal reformations through the cervical spine were then performed. Auto Exposure Controls were utilized during the CT exam to meet ALARA standards for radiation dose reduction. INDICATION: Fall with right periorbital laceration. Compared with head CT 11/04/[address] angiographic study of the neck 07/15/2016. CT HEAD: Chronic cerebral cortical atrophy stable. No regina hydrocephalus. Extensive periventricular white matter hypodensities chronic likely small vessel sequelae. There is an old left basal ganglier lacunar infarct chronic. No sulcal effacement. No hemorrhage. No acute or abnormal extra-axial collection. The basilar cisterns are patent. There were no findings to suggest an elevation of the intracranial pressures. There is no calvarial fracture deformity. There is no mastoid effusion. There is no paranasal sinus air-fluid level. No detectable facial fracture. No post septal or retrobulbar or orbital hematoma. No proptosis. Atherosclerotic vascular calcifications chronic. C-spine: There are chronic degenerative changes to the discs, endplates and facets showing mild generalized progression from the prior. There was, however no cervical fracture or dislocation. Chronic carotid atherosclerotic vascular calcifications present. The visualized thoracic inlet nonacute with some apical centrilobular emphysematous lung disease. IMPRESSION: CT HEAD: Chronic old ischemic and senescent changes with no hemorrhage, fracture or acute pathology. Cervical spine: Progressive chronic degenerative change but no fracture or traumatic malalignment. Dictated on workstation # [id number] Dict: 04/15/22 1021 Trans: 04/15/22 1034 [id number] Interpreted by: WERO CISSE Electronically signed by: Departure Impression Primary Impression: Fall Qualified Codes: W19.XXXA - Unspecified fall, initial encounter Additional Impressions: Facial abrasion Qualified Codes: S00.81XA - Abrasion of other part of head, initial encounter Contusion of face Qualified Codes: S00.83XA - Contusion of other part of head, initial encounter Chronic anticoagulation Hypotension Qualified Codes: I95.9 - Hypotension, unspecified Disposition: ADMITTED INPATIENT Condition: Stable Admissions Decision to Admit Reason: Admit from ER (General) Decision to Admit/Date: Apr 16, 2022 Time/Decision to Admit Time: 10:30 Departure-Patient Inst. Referrals: FAIZAN CALIX MD (PCP/Family) Primary Care Physician NAVEED PURDY MD Apr 15, 2022 09:25
[2022-04-15 10:01] LABS: BASOPHILS % (AUTO) 0 % (0-10); EOSINOPHILS % (AUTO) 0 % (0-10); HEMATOCRIT 27 % (40-54); HEMOGLOBIN 8.5 g/dL (13.3-17.7); LYMPHOCYTES # (AUTO) 1.4 10^3/uL (1.0-4.0); LYMPHOCYTES % (AUTO) 16 % (12-44); MEAN CORPUSCULAR HEMOGLOBIN 30 pg (25-34); MEAN CORPUSCULAR HGB CONC 32 g/dL (32-36); MEAN CORPUSCULAR VOLUME 92 fL (80-99); MEAN PLATELET VOLUME 9.8 fL (9.0-12.2); MONOCYTES # (AUTO) 0.5 10^3/uL (0.0-1.0); MONOCYTES % (AUTO) 6 % (0-12); NEUTROPHILS # (AUTO) 6.6 10^3/uL (1.8-7.8); NEUTROPHILS % (AUTO) 77 % (42-75); PLATELET COUNT 239 10^3/uL (130-400); WHITE BLOOD COUNT 8.5 10^3/uL (4.3-11.0)
[2022-04-15 10:10] LABS: POTASSIUM 4.1 MMOL/L (3.6-5.0)
[2022-04-15 10:11] LABS: CALCIUM 9.1 MG/DL (8.5-10.1)
[2022-04-15 10:15] LABS: CREATININE SERUM 1.66 MG/DL (0.60-1.30)
--- NOTE | 2022-04-15 10:34 | Diagnostic Imaging Report ---
PROCEDURE: CT head and CT cervical spine without contrast. TECHNIQUE: Multiple contiguous axial images were obtained through the brain and cervical spine without the use of intravenous contrast. Sagittal and coronal reformations through the cervical spine were then performed. Auto Exposure Controls were utilized during the CT exam to meet ALARA standards for radiation dose reduction. INDICATION: Fall with right periorbital laceration. Compared with head CT 11/04/[address] angiographic study of the neck 07/15/2016. CT HEAD: Chronic cerebral cortical atrophy stable. No regina hydrocephalus. Extensive periventricular white matter hypodensities chronic likely small vessel sequelae. There is an old left basal ganglier lacunar infarct chronic. No sulcal effacement. No hemorrhage. No acute or abnormal extra-axial collection. The basilar cisterns are patent. There were no findings to suggest an elevation of the intracranial pressures. There is no calvarial fracture deformity. There is no mastoid effusion. There is no paranasal sinus air-fluid level. No detectable facial fracture. No post septal or retrobulbar or orbital hematoma. No proptosis. Atherosclerotic vascular calcifications chronic. C-spine: There are chronic degenerative changes to the discs, endplates and facets showing mild generalized progression from the prior. There was, however no cervical fracture or dislocation. Chronic carotid atherosclerotic vascular calcifications present. The visualized thoracic inlet nonacute with some apical centrilobular emphysematous lung disease. IMPRESSION: CT HEAD: Chronic old ischemic and senescent changes with no hemorrhage, fracture or acute pathology. Cervical spine: Progressive chronic degenerative change but no fracture or traumatic malalignment. Dictated by: Dictated on workstation # [id number]
[2022-04-15] MEDS ORDERED: NS IV 500 ML 500 ML IV ONE (11:15)
[2022-04-15] MEDS ORDERED: ONDANSETRON 4 MG/2 ML (SDV) Z0FRAN IV PRN (12:30)
[2022-04-15] MEDS ORDERED: NS IV 500 ML 500 ML IV PRN (12:30)
[2022-04-15] MEDS ORDERED: LACTULOSE SYRUP 10GM/15ML (ENULOSE) 30ML UDC PO PRN (12:30)
[2022-04-15] MEDS ORDERED: MILK OF MAGNESIA 400 MG/5 ML 30 ML UDC PO PRN (12:30)
[2022-04-15] MEDS ORDERED: ACETAMINOPHEN 325 MG TABLET PO PRN (12:30)
[2022-04-15] MEDS ORDERED: ANTACID SUSP 30 ML UDC (MYLANTA) PO PRN (12:30)
[2022-04-15] MEDS ORDERED: MELATONIN 3 MG TABLET PO PRN (12:30)
[2022-04-15] MEDS ORDERED: polyethylene glycoL POWDER 17 GM (MIRALAX) PACK PO PRN (12:30)
[2022-04-15] MEDS ORDERED: ONDANSETRON 4 MG (ZOFRAN) ORAL DISSOLVE TAB PO PRN (12:30)
[2022-04-15] MEDS ORDERED: BISACODYL 10 MG SUPP (DULCOLAX) PR PRN (12:30)
[2022-04-15] MEDS ORDERED: CALCIUM CARBONATE 500 MG (TUMS) TAB.CHEW PO PRN (12:30)
[2022-04-15 12:41] VITALS: BP 142/75
--- NOTE | 2022-04-15 13:56 | Occupational Therapy Eval ---
OT Evaluation-General/PLF Medical Diagnosis Admission Date Apr 15, 2022 at 11:37 Medical Diagnosis: Fall Onset Date: Apr 15, 2022 Therapy Diagnosis Therapy Diagnosis: Reduced ADL status Height/Weight Height (Feet): 5 Height (Inches): 8.00 Weight (Pounds): 152 Weight (Ounces): 6.4 Precautions Precautions/Isolations: Fall Prevention, Standard Precautions Referral Physician: Homar Referral Reason: Evaluation/Treatment Medical History Pertinent Medical History: Arthritis, CAD Current History Pt came to ER for severe bleeding above R eye after a fall at home. Pt lives with at home. He was receiving home health up until 3 months ago, due to discontinuation of services secondary to lack of progress. Family stated he has not been doing well since May of last year. He is max-total assist with all ADLs, except toileting he is able to do himself. His and son can help with all ADLs. does all IADLs. He was using a walker prior to hospitalization. Reviewed History: Yes Social History Home: Single Level Current Living Status: Significant Other Entry Into Home: Stairs With Railing ADL-Prior Level of Function SCALE: Activities may be completed with or without assistive devices. 7-Tjqzaqrygk-vurcwnj completes the activity by him/herself with no assistance from a helper. 5-Set-up or Clean-up Assistance-helper sets up or cleans up; patient completes activity. [place] assists only prior to or following the activity. 4-Supervision or Touching Assistance-helper provides verbal cues and/or touching/steadying and/or contact guard assistance as patient completes activity. Assistance may be provided throughout the activity or intermittently. 3-Partial/Moderate Assistance-helper does LESS THAN HALF the effort. [place] lifts, holds or supports trunk or limbs, but provides less than half the effort. 2-Substantial/Maximal Assistance-helper does MORE THAN HALF the effort. [place] lifts or holds trunk or limbs and provides more than half the effort. 2-Helkajona-rvjbwe does ALL the effort. Patient does none of the effort to co mplete the activity. Or, the assistance of 2 or more helpers is required for the patient to complete the activity. If activity was not attempted, code reason: 7-Patient Refused. 9-Not Applicable-not attempted and the patient did not perform the activity before the current illness, exacerbation or injury. 10-Not Attempted due to Environmental Limitations-(lack of equipment, weather restraints, etc.). 88-Not Attempted due to Medical Conditions or Safety Concerns. Self Care: Dependent Functional Cognition: Needed Some Help DME/Equipment: Bath Bench, Tub/Shower OT Current Status Subjective Pt laying in bed with multiple family members present. He agrees to a therapy eval. Appearance Pt left seated on EOB, eating lunch with . All needs within reach. Mental Status/Objective Patient Orientation: Person, Situation Current Glasses/Contacts: Yes Hearing Aids: No Dentures/Partials: No Hand Dominance: Right Pt is extremely frail and weak at baseline. ADL-Treatment Lower Body Dressing (QC): 1 (baseline) On/Off Footwear (QC): 1 (baseline) Pt was min assist for bed mobility and showed good seated balance. Pt was dependent for donning brief and footwear; this is baseline. Sit<>stand transfer: SBA. Pt's required CGA for his dynamic standing balance. Pt took 4 small shuffling steps forwards and 5 steps towards HOB. Pt required cues for safety with walker. Family reports that he is chronically weak and has assistance with all ADLs at home. Skilled OT services not warranted at this time as pt is at baseline for all ADLs. Education OT Patient Education: Correct positioning, Modified ADL techniques, Progress toward Goal/Update tx plan, Purpose of tx/functional activities, Rehab process, Safety issues, Transfer techniques Teaching Recipient: Patient Teaching Methods: Discussion Response to Teaching: Verbalize Understanding, Return Demonstration OT Work Order Detailer Goals Work Order Detailer Goals 1=Demonstrate adherence to instructed precautions during ADL tasks. 2=Patient will verbalize/demonstrate understanding of assistive devices/modifications for ADL. 3=Patient will improve strength/tolerance for activity to enable patient to perform ADL's. OT Education/Plan Problem List/Assessment Assessment: No Skilled OT Needs ID'd Discharge Recommendations Plan/Recommendations: Discontinue OT Therapy Discharge Recommendati: Scheduled Assistance, Bath Aide, Homemaker Support, Home & Family Treatment Plan/Plan of Care Treatment,Training & Education: Yes Patient would benefit from OT for education, treatment and training to promote independence in ADL's, mobility, safety and/or upper extremity function for ADL's. Plan of Care: ADL Retraining, Functional Mobility Treatment Duration: Apr 15, 2022 Frequency: 1 time per week Estimated Hrs Per Day: .25 hour per day Agreement: Yes Rehab Potential: Poor Time/GCodes Start Time: 13:20 Stop Time: 13:35 Total Time Billed (hr/min): 15 Billed Treatment Time 1 visit Nancy Mckinney OT Apr 15, 2022 13:55
[2022-04-15] MEDS: NS IV 1000 ML 1,000 ML IV SCH (14:01)
--- NOTE | 2022-04-15 14:43 | Physical Therapy Progress Note ---
Therapy Progress Note Attempted to see patient for PT evaluation. Nurse gave approval to evaluate patient. Patient lying right sided in bed and politely refuses. He reports he is too tired. Reports he would participate in therapy tomorrow. JULIETTE FLANNERY PT Apr 15, 2022 14:43
[2022-04-15 15:07] VITALS: BP 127/68
[2022-04-15] MEDS ORDERED: TMSL.4C PO (15:34)
[2022-04-15] MEDS ORDERED: DOCU100C37 PO (15:34)
--- NOTE | 2022-04-15 15:44 | Consultation - Surgery ---
History of Present Illness History of Present Illness Patient Consulted On(bertha/time) 04/15/22 15:39 Time Seen by Provider: 15:01 History of Present Illness Surgery asked to consult regarding Fall with head injury. HPI per ED: PT'S DAUGHTER WITH PT, STATES PT FELL WITH HIS WALKER LAST NIGHT, CC OF LAC ABOVE RT EYE, STERI STRIP APPLIED AT HOME, WOUND STARTED BLEEDING AGAIN THIS A.M. PT DENIES PAIN ANYWHERE ELSE, PT UNABLE TO STAND ON HIS OWN. SAW PT FALL AND DENIES ANY LOC. Patient is an 81yo male to the ER with a complaint of bleeding all night. Had a mechanical trip and fall yesterday at about 4:30pm. witnessed the fall. No LOC reported. She states that he was recently started on Xarelto by Dr Pretty's office. He did suffer a small "laceration" to right lateral eyebrow. states that they were able to get bleeding under controlled last night but they woke up this morning and the bed was "full of blood". Both the and the daughter did not realize that the Xarelto was a blood thinner. He has extensive cardiac disease and suffered a stroke in May of last year. Left him with some speech difficulty and some left sided weakness (that seems to be improved at this time). Patient has no complaints of neck pain. Mild headache. No chest pain, SOB, abdominal pain, N/V. no new arm weakness, numbness or tingling. When I saw pt this afternoon, and daughter at bedside. Pt states that have a neighbor who is a retired nurse, came by and helped last night; bleeding stopped. He fell around 16:30 yesterday. However, when he woke up there was a large amount of blood and he was bleeding from the laceration on his right forehead. Pt denies any mental status changes, concurs. Pt and family deny any neurological changes. Allergies and Home Medications Allergies Coded Allergies: No Known Drug Allergies (Unverified , 02/07/20) Patient Home Medication List Home Medication List Reviewed: Yes Atorvastatin Calcium (Atorvastatin Calcium) 20 Mg Tablet, 20 MG PO HS, (Reported) Entered as Reported by: MARINO NEWMAN on 01/30/16 7037 Last Action: Reviewed Docusate Sodium (Docusate Sodium) 100 Mg Capsule, 100 MG PO DAILY PRN for CONSTIPATION-1ST LINE, (Reported) Entered as Reported by: LÁZARO ACOSTA on 04/15/221533 Last Action: Reviewed Dronedarone HCl (Multaq) 400 Mg Tablet, 400 MG PO BID, (Reported) Entered as Reported by: STACIE LOVE on 04/15/22921 Last Action: Reviewed Escitalopram Oxalate (Escitalopram Oxalate) 20 Mg Tablet, 20 MG PO HS, (Report ed) Entered as Reported by: STACIE LOVE on 04/15/22921 Last Action: Reviewed Mirtazapine (Mirtazapine) 15 Mg Tablet, 15 MG PO HS, (Reported) Entered as Reported by: STACIE LOVE on 04/15/22921 Last Action: Reviewed Rivaroxaban (Xarelto) 20 Mg Tablet, 20 MG PO HS, (Reported) Entered as Reported by: STACIE LOVE on 04/15/22921 Last Action: Reviewed Tamsulosin HCl (Flomax) 0.4 Mg Cap, 0.4 MG PO DAILY, (Reported) Entered as Reported by: LÁZARO ACOSTA on 04/15/221533 Last Action: Reviewed Discontinued Medications Amiodarone HCl (Amiodarone HCl) 200 Mg Tablet, 200 MG PO BID Discontinued Reason: No Longer Taking Prescribed by: FRANCHESKA PRETTY on 04/21/21 0901 Last Action: Discontinued Amlodipine Besylate (Amlodipine Besylate) 5 Mg Tablet, (Reported) Discontinued Reason: No Longer Taking Entered as Reported by: MARINO NEWMAN on 01/30/161526 Last Action: Discontinued Aspirin (Aspir 81) 81 Mg Tablet.dr, 81 MG PO DAILY, (Reported) Discontinued Reason: No Longer Taking Entered as Reported by: MARLEN NEELY on 02/07/20 0945 Last Action: Discontinued Dronedarone HCl (Multaq) 400 Mg Tablet, 400 MG PO BID, (Reported) Discontinued Reason: Duplicate Order Entered as Reported by: LÁZARO ACOTSA on 04/15/221533 Last Action: Discontinued Metoprolol Succinate (Metoprolol Succinate) 50 Mg Tab.er.24h, (Reported) Discontinued Reason: No Longer Taking Entered as Reported by: MARINO NEWMAN on 01/30/161526 Last Action: Discontinued Prasugrel HCl (Effient) 10 Mg Tablet, (Reported) Discontinued Reason: No Longer Taking Entered as Reported by: MARINO NEWMAN on 01/30/161526 Last Action: Discontinued Tamsulosin HCl (Tamsulosin HCl) 0.4 Mg Cap.er.24h, (Reported) Discontinued Reason: Duplicate Order Entered as Reported by: MARINO NEWMAN on 01/30/161526 Last Action: Discontinued Past Kpzbcrd-Trueag-Dfnvsh Hx Patient Social History Smoking Status: Current Everyday Smoker Type Used: Cigars 2nd Hand Smoke Exposure: Yes Recent Hopitalizations: Yes Alcohol Use?: No Have you traveled recently?: No Immunizations Up To Date Tetanus Booster (TDap): Unknown Surgeries History of Surgeries: Yes Surgeries: Coronary Stent Respiratory History of Respiratory Disorde: No Cardiovascular History of Cardiac Disorders: Yes (X4 STENTS) Cardiac Disorders: Coronary Artery Disease Neurological History of Neurological Disord: Yes Neurological Disorders: Stroke Reproductive System Hx Reproductive Disorders: No Genitourinary History of Genitourinary Disor: No Gastrointestinal History of Gastrointestinal Di: No Musculoskeletal History of Musculoskeletal Dis: Yes Musculoskeletal Disorders: Arthritis Endocrine History of Endocrine Disorders: No HEENT History of HEENT Disorders: Yes HEENT Disorders: Cataract Loss of Vision: Bilateral Hearing Impairment: Hard of Hearing Cancer History of Cancer: No Psychosocial History of Psychiatric Problem: No Blood Transfusions History of Blood Disorders: No Family Medical History Significant Family History: Renal Disease (father) Family Medial History: Kidney disease 19 FATHER Review of Systems-General Constitutional: malaise, weakness EENTM: No double vision, No dental problems, No mouth swelling, No epistaxis Respiratory: No cough, No dyspnea on exertion Cardiovascular: No chest pain; Hx of Intervention Gastrointestinal: No abdominal pain, No melena, No nausea, No vomiting Genitourinary: No dysuria; frequency; No hematuria Musculoskeletal: joint pain, joint swelling Skin: other (multiple bruises) Psychiatric/Neurological: Denies Anxiety, Denies Depressed; Pre-Existing Deficit, Weakness Physical Exam-General Problems Physical Exam Vital Signs Vital Signs - First Documented 04/15/22 09:01 Temp 35.8 Pulse 81 Resp 16 B/P (MAP) 89/62 (71) Pulse Ox 95 O2 Delivery Room Air Capillary Refill : Less Than 3 Seconds General Appearance: mild distress, thin Eyes: Bilateral Eye PERRL, Bilateral Eye EOMI HEENT: pharynx normal; No scleral icterus (R), No scleral icterus (L); other (laceration right forehead, large hematoma right side of head and face) Respiratory: lungs clear, normal breath sounds, no respiratory distress, no accessory muscle use Cardiovascular: regular rate, rhythm, no murmur Gastrointestinal: non tender, soft, no organomegaly Back: no CVA tenderness, no vertebral tenderness Neurologic/Psychiatric: alert, normal mood/affect Skin: normal color, warm/dry Lymphatic: no adenopathy (neck, axilla or groin) Data Review Labs Laboratory Tests 04/15/22 09:50: White Blood Count 8.5, Red Blood Count 2.88L, Hemoglobin 8.5L, Hematocrit 27L, Mean Corpuscular Volume 92, Mean Corpuscular Hemoglobin 30, Mean Corpuscular Hemoglobin Concent 32, Red Cell Distribution Width 17.0H, Platelet Count 239, Mean Platelet Volume 9.8, Immature Granulocyte % (Auto) 0, Neutrophils (%) (Auto) 77H, Lymphocytes (%) (Auto) 16, Monocytes (%) (Auto) 6, Eosinophils (%) (Auto) 0, Basophils (%) (Auto) 0, Neutrophils # (Auto) 6.6, Lymphocytes # (Auto) 1.4, Monocytes # (Auto) 0.5, Eosinophils # (Auto) 0.0, Basophils # (Auto) 0.0, Immature Granulocyte # (Auto) 0.0, Sodium Level 139, Potassium Level 4.1, Chloride Level 98, Carbon Dioxide Level 26, Anion Gap 15H, Blood Urea Nitrogen 32H, Creatinine 1.66H, Estimat Glomerular Filtration Rate 41, BUN/Creatinine Ratio 19, Glucose Level 108H, Calcium Level 9.1 Radiology Date of Exam:04/15/22 CT HEAD/CERVICAL SPINE WO PROCEDURE: CT head and CT cervical spine without contrast. TECHNIQUE: Multiple contiguous axial images were obtained through the brain and cervical spine without the use of intravenous contrast. Sagittal and coronal reformations through the cervical spine were then performed. Auto Exposure Controls were utilized during the CT exam to meet ALARA standards for radiation dose reduction. INDICATION: Fall with right periorbital laceration. Compared with head CT 11/04/[address] angiographic study of the neck 07/15/2016. CT HEAD: Chronic cerebral cortical atrophy stable. No regina hydrocephalus. Extensive periventricular white matter hypodensities chronic likely small vessel sequelae. There is an old left basal ganglier lacunar infarct chronic. No sulcal effacement. No hemorrhage. No acute or abnormal extra-axial collection. The basilar cisterns are patent. There were no findings to suggest an elevation of the intracranial pressures. There is no calvarial fracture deformity. There is no mastoid effusion. There is no paranasal sinus air-fluid level. No detectable facial fracture. No post septal or retrobulbar or orbital hematoma. No proptosis. Atherosclerotic vascular calcifications chronic. C-spine: There are chronic degenerative changes to the discs, endplates and facets showing mild generalized progression from the prior. There was, however no cervical fracture or dislocation. Chronic carotid atherosclerotic vascular calcifications present. The visualized thoracic inlet nonacute with some apical centrilobular emphysematous lung disease. IMPRESSION: CT HEAD: Chronic old ischemic and senescent changes with no hemorrhage, fracture or acute pathology. Cervical spine: Progressive chronic degenerative change but no fracture or traumatic malalignment. 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 I reviewed the CT films myself and do not see any intracranial hemorrhage. It is possible to get a spontaneous bleed up to 24 hours after head trauma for people on anticoagulation; can happen later, but the majority happen within 24 hours. Anemia is probably due to blood loss from the laceration. Pt and family do not think he has ever been told before he is anemic. Nothing to do from a Trauma standpoint at this time. Will sign off. MARLEN SHEIKH DO Apr 15, 2022 15:44
--- NOTE | 2022-04-15 16:31 | History & Physical-Hospitalist ---
History of Present Illness HPI/Chief Complaint Adolfo Slade is an 81 year old male with PMH HTN, HLD, CAD, BPH, CVA, AFib, who presented after a fall. He fell yesterday evening. He was walking with his walker. His states that he doesn't use it properly and walks behind it. The walker slipped forward and he fell forward and his face hit the ground. He denies any lightheadedness or dizziness. He denies any loss of consciousness. He denies chest pain and palpitations. He denies shortness of breath. He denies abdominal pain, nausea, and vomiting. He has not been eating or drinking well since he had a stroke several months ago. He has lost a significant amount of weight. He is nearly completely dependent for all ADLs. He lives at home with his who is his primary caregiver. Source: patient, family Exam Limitations: clinical condition Date Seen 04/15/22 Time Seen by a Provider: 12:00 Attending Physician Robin Leiva MD PCP Admitting Physician: Stephani Mathias MD Attending Physician: Stephani Mathias MD Referring Physician Date of Admission Apr 15, 2022 at 11:37 Home Medications & Allergies Home Medications Reviewed patient Home Medication Reconciliation performed by pharmacy medication reconciliations technicians and trades workers and/or nursing. Patients Allergies have been reviewed. Allergies Allergies Coded Allergies No Known Drug Allergies (Unverified02/07/20) Past Fdxbjat-Whrziq-Ikcvap Hx Patient Social History Tobacco Use?: Yes Tobacco type used: Cigars Smoking Status: Current Everyday Smoker Use of E-Cig and/or Vaping dev: No Use of E-Cig and/or Vaping [place]: Current Everyday User Substance use?: No Alcohol Use?: No Pt feels they are or have been: No Immunizations Up To Date First/Initial COVID19 Vaccinat: AUG 28 Second COVID19 Vaccination [place]: SEPTEMBER 25 Tetanus Booster (TDap): Unknown Current Status Advance Directives: Yes Advance Directive Location: Home Communicates: Verbally Primary Language: [place] Preferred Spoken Language: [place] Is interpretation needed?: No Implanted or Applied Medical D: Stents, Other Past Medical History Surgeries: Coronary Stent Currently Using CPAP: No Currently Using BIPAP: No Coronary Artery Disease Stroke Arthritis Cataract Loss of Vision: Bilateral Hearing Impairment: Hard of Hearing Blood Disorders: No Family Medical History Kidney disease 19 FATHER Renal Disease (father) Review of Systems Constitutional: weakness EENTM: no symptoms reported Respiratory: no symptoms reported Cardiovascular: no symptoms reported Gastrointestinal: loss of appetite Physical Exam Physical Exam Vital Signs Vital Signs - First Documented 04/15/22 09:01 Temp 35.8 Pulse 81 Resp 16 B/P (MAP) 89/62 (71) Pulse Ox 95 O2 Delivery Room Air Capillary Refill : Less Than 3 Seconds Height, Weight, BMI Height: 5'8.00" Weight: 152lbs. 6.4oz. 69.124371el; 14.70 BMI Method:Stated General Appearance: No Apparent Distress, Chronically ill, Cachetic HEENT: PERRL/EOMI, Pharynx Normal Respiratory: No Respiratory Distress, Decreased Breath Sounds Cardiovascular: Regular Rate, Rhythm, No Murmur Gastrointestinal: Normal Bowel Sounds, Non Tender, Soft Extremity: Normal Inspection, No Pedal Edema Neurologic/Psychiatric: Alert, Motor Weakness Skin: Warm/Dry, Pallor, Other (right eyebrow laceration) Results Results/Procedures Labs Laboratory Tests 04/15/22 09:50 Patient resulted labs reviewed. Imaging: Reviewed Imaging Report Assessment/Plan Admission Diagnosis Fall Admission Status: Observation Assessment and Plan Fall Forehead laceration Chronic anticoagulation Anemia History of CVA with residual deficits Debility Severe protein calorie malnutrition Cachexia Tobacco abuse HTN HLD BPH Goals of care discussion CT without evidence of bleed or fracture Trauma surgery consuled, no needs, signed off Hold Marcelinorelto Family would like to explore options for hospice at home SW and palliative care consulted, appreciate assistance Diagnosis/Problems Diagnosis/Problems (1) Fall Status: Acute Qualifiers: Encounter type: initial encounter Qualified Codes: W19.XXXA - Unspecified fall, initial encounter (2) Forehead laceration Status: Acute Qualifiers: Encounter type: initial encounter Qualified Codes: S01.81XA - Laceration without foreign body of other part of head, initial encounter (3) Chronic anticoagulation Status: Chronic (4) Anemia Status: Acute (5) History of cerebrovascular accident (CVA) with residual deficit Status: Chronic (6) HTN (hypertension) Status: Chronic (7) HLD (hyperlipidemia) Status: Chronic (8) CAD (coronary artery disease) Status: Chronic (9) BPH (benign prostatic hyperplasia) Status: Chronic (10) Tobacco abuse Status: Chronic (11) Cachexia Status: Acute (12) Severe protein-calorie malnutrition Status: Acute (13) Goals of care, counseling/discussion Status: Acute STEPHANI MATHIAS MD Apr 15, 2022 16:31
[2022-04-15] MEDS ORDERED: NICOTINE 14 MG (NICODERM) PATCH TD ONE (17:00)
[2022-04-15] MEDS ORDERED: TAMSULOSIN 0.4 MG (FLOMAX) CAP PO SCH (18:00)
[2022-04-15 19:31] VITALS: BP 97/56
[2022-04-15] MEDS ORDERED: MIRTAZAPINE 15 MG (REMERON) TAB PO SCH (21:00)
[2022-04-15] MEDS: DRONEDARONE 400 MG TABLET PO SCH (21:16)
[2022-04-15] MEDS: DOCUSATE SODIUM 100 MG (COLACE) CAP PO SCH (21:16)
[2022-04-15] MEDS: SENNOSIDES 8.6 MG (SENOKOT) TAB PO SCH (21:16)
[2022-04-15 22:27] VITALS: BP 88/55
[2022-04-15 23:40] VITALS: BP 119/61
[2022-04-16] MEDS: NS IV 1000 ML 1,000 ML IV SCH (00:04)
[2022-04-16 03:47] VITALS: BP 97/58
[2022-04-16 04:56] LABS: HEMOGLOBIN 7.3 g/dL (13.3-17.7)
[2022-04-16 05:10] LABS: POTASSIUM 3.7 MMOL/L (3.6-5.0)
[2022-04-16 05:12] LABS: CALCIUM 8.2 MG/DL (8.5-10.1)
[2022-04-16 05:16] LABS: CREATININE SERUM 1.44 MG/DL (0.60-1.30)
[2022-04-16] MEDS ORDERED: KCL 20 MEQ TAB (K-DUR) PO SCH (06:00)
[2022-04-16] MEDS ORDERED: POTASSIUM CL 10MEQ/50ML IVPB 50 ML IV SCH (06:00)
[2022-04-16] MEDS ORDERED: MAGNESIUM 1 GM/100 ML IVPB 100 ML IV SCH (06:00)
[2022-04-16 07:24] VITALS: BP 90/62
[2022-04-16] MEDS: DOCUSATE SODIUM 100 MG (COLACE) CAP PO SCH (08:24)
[2022-04-16] MEDS: SENNOSIDES 8.6 MG (SENOKOT) TAB PO SCH (08:24)
[2022-04-16] MEDS: DRONEDARONE 400 MG TABLET PO SCH (08:24)
[2022-04-16] MEDS ORDERED: NICOTINE PATCH REMOVAL TP SCH (08:59)
[2022-04-16] MEDS ORDERED: NICOTINE 14 MG (NICODERM) PATCH TD SCH (09:00)
--- NOTE | 2022-04-16 10:09 | Physical Therapy Evaluation ---
PT Evaluation-General Medical Diagnosis Admission Date Apr 15, 2022 at 11:37 Medical Diagnosis: Fall Onset Date: Apr 15, 2022 Therapy Diagnosis Therapy Diagnosis: impaired mobility Height/Weight Height (Feet): 5 Height (Inches): 8.00 Weight (Pounds): 152 Weight (Ounces): 6.4 Precautions Precautions/Isolations: Fall Prevention, Standard Precautions Referral Physician: Homar Reason for Referral: Evaluation/Treatment Medical History Pertinent Medical History: Arthritis, CAD History of Falls (past yr): Yes Prior Surgery (last 100 days): Unknown Additional Medical History Past Medical History Surgeries: Coronary Stent Currently Using CPAP: No Currently Using BIPAP: No Coronary Artery Disease Stroke Arthritis Cataract Loss of Vision: Bilateral Hearing Impairment: Hard of Hearing Blood Disorders: No Reviewed History: Yes Social History Home: Single Level Current Living Status: Significant Other Entry Into Home: Stairs With Railing, Stairs Without Railing PT Steps Into Home: 3 Prior Prior Level of Function SCALE: Activities may be completed with or without assistive devices. 0-Qpdgofetev-okmmxtk completes the activity by him/herself with no assistance from a helper. 5-Set-up or Clean-up Assistance-helper sets up or cleans up; patient completes activity. [place] assists only prior to or following the activity. 4-Supervision or Touching Assistance-helper provides verbal cues and/or touching/steadying and/or contact guard assistance as patient completes activity. Assistance may be provided throughout the activity or intermittently. 3-Partial/Moderate Assistance-helper does LESS THAN HALF the effort. [place] lifts, holds or supports trunk or limbs, but provides less than half the effort. 2-Substantial/Maximal Assistance-helper does MORE THAN HALF the effort. [place] lifts or holds trunk or limbs and provides more than half the effort. 6-Oflraauep-dcyjas does ALL the effort. Patient does none of the effort to complete the activity. Or, the assistance of 2 or more helpers is required for the patient to complete the activity. If activity was not attempted, code reason: 7-Patient Refused. 9-Not Applicable-not attempted and the patient did not perform the activity before the current illness, exacerbation or injury. 10-Not Attempted due to Environmental Limitations-(lack of equipment, weather restraints, etc.). 88-Not Attempted due to Medical Conditions or Safety Concerns. Bed Mobility: 6 Transfers (B,C,W/C): 6 Gait: 6 Stairs: 6 Indoor Mobility (Ambulation): Independent Stairs: Independent Prior Devices Use: Walker PT Evaluation-Current Subjective Patient in bed pre tx, agrees to exercises in bed but refuses to ambulate or get out of bed. Patient has no complaints of pain. Pt/Family Goals none stated Objective Patient Orientation: Person, Confused, Mumbles Attachments: IV ROM/Strength ROM Lower Extremities WNL Strength Lower Extremities LLE (hip flexion 4/5, knee flexion 4/5, knee extension 4/5, dorsiflexion 4/5), RLE (hip flexion 4/5, knee flexion 4/5, knee extension 4/5, dorsiflexion 4/5) Sensory Hearing: Impaired Hand Dominance: Right Sensation Right Lower Extremit: Intact Sensation Left Lower Extremity: Intact Treatment BLE supine exercises x15 (AP, HS, SLR, GS) Assessment/Needs Patient in bed post tx with nurse call, phone, tray, bed alarm on, family in room. Patient has impaired mobility, strength. Refused any OOB activity. Rehab Potential: Fair PT Railroad Car Loader Goals Railroad Car Loader Goals PT Railroad Car Loader Goals Time Frame: Apr 23, 2022 Roll Left & Right (QC): 4 Sit to Lying (QC): 4 Lying-Sitting on Side/Bed(QC): 4 Sit to Stand (QC): 4 Chair/Ptg-dx-Mbrfs Xfer(QC): 4 Walk 10 feet (QC): 4 PT Plan Problem List Problem List: Activity Tolerance, Functional Strength, Safety, Balance, Gait, Transfer, Bed Mobility, ROM Treatment/Plan Treatment Plan: Continue Plan of Care Treatment Plan: Bed Mobility, Education, Functional Activity [place], Functional Strength, Gait, Safety, Therapeutic Exercise, Transfers Treatment Duration: Apr 23, 2022 Frequency: 6 times per week Estimated Hrs Per Day: .25 hour per day Patient and/or Family Agrees t: Yes Safety Risks/Education Patient Education: Correct Positioning, Safety Issues Teaching Recipient: Patient Teaching Methods: Demonstration, Discussion Response to Teaching: Reinforcement Needed Discharge Recommendations Plan Patient will perform bed mobility and transfer training, balance and endurance training, functional strengthening, stair training, gait training, and education, to improve functional mobility and independence at home. Therapy Discharge Recommendati: Scheduled Assistance, Home & Family, Post Acute PT Time/GCodes Time In: 0937 Time Out: 09 Total Billed Treatment Time: 11 Total Billed Treatment 1 visit THERESA BENAVIDES PT Apr 16, 2022 10:09
[2022-04-16 11:15] VITALS: BP 99/64
--- NOTE | 2022-04-16 11:36 | Discharge Summary ---
Discharge Summary Hospital Course Was the Problem List Reviewed?: Yes Problems/Dx: (1) Fall Status: Acute Qualifiers: Qualified Codes: W19.XXXA - Unspecified fall, initial encounter (2) Forehead laceration Status: Acute Qualifiers: Qualified Codes: S01.81XA - Laceration without foreign body of other part of head, initial encounter (3) Chronic anticoagulation Status: Chronic (4) Anemia Status: Acute (5) History of cerebrovascular accident (CVA) with residual deficit Status: Chronic (6) HTN (hypertension) Status: Chronic (7) HLD (hyperlipidemia) Status: Chronic (8) CAD (coronary artery disease) Status: Chronic (9) BPH (benign prostatic hyperplasia) Status: Chronic (10) Tobacco abuse Status: Chronic (11) Cachexia Status: Acute (12) Severe protein-calorie malnutrition Status: Acute (13) Goals of care, counseling/discussion Status: Acute Hospital Course Date of Admission: Apr 15, 2022 at 11:37 Admission Diagnosis : Fall, forehead laceration, anemia, debility Family Physician/Provider: Roibn Calix MD Date of Discharge: 04/16/22 Discharge Diagnosis: Fall, forehead laceration, anemia, debility, severe protein calorie malnutrition, history of CVA with residual deficits Hospital Course: Gus Slade is an 81 year old male with PMH HTN, HLD, CAD, BPH, CVA with residual deficits, severe protein calorie malnutrition, tobacco abuse, who was admitted after a fall. He had a stroke several months ago. He has not been able to eat or drink much since then. He has lost a significant amount of weight and is cachectic at this time. He has also lost a lot of strength. He requires assistance for nearly all ADLs. He has been using a walker but has had several falls recently. He is on Xarelto for atrial fibrillation. He fell and has a laceration of his right forehead with large ecchymosis. That night he bled all over their sheets and he was brought to the hospital the following morning. He was anemic but did not require any blood transfusions. His bleeding stopped. His Xarelto was stopped after a discussion regarding risks and benefits, bleeding versus stroke. After a goals of care discussion with the patient and family, it was decided to pursue hospice care. He does not want to move out of their home and wants to spend his remaining time there. He was set up with [facility]. He was discharged home in poor but stable condition. Labs and Pending Lab Test: Laboratory Tests 04/16/22 04:49: Hemoglobin 7.3L, Hematocrit 22L, Sodium Level 137, Potassium Level 3.7, Chloride Level 103, Carbon Dioxide Level 25, Anion Gap 9, Blood Urea Nitrogen 29H, Creatinine 1.44H, Estimat Glomerular Filtration Rate 49, BUN/Creatinine Ratio 20, Glucose Level 89, Calcium Level 8.2L, Magnesium Level 1.9 Home Meds Active Reported Docusate Sodium 100 Mg Capsule 100 Mg PO DAILY PRN Flomax (Tamsulosin HCl) 0.4 Mg Cap 0.4 Mg PO DAILY Multaq (Dronedarone HCl) 400 Mg Tablet 400 Mg PO BID Mirtazapine 15 Mg Tablet 15 Mg PO HS Escitalopram Oxalate 20 Mg Tablet 20 Mg PO HS Atorvastatin Calcium 20 Mg Tablet 20 Mg PO HS Assessment/Pt Instructions Discharged home on hospice with [facility] Discharge Planning: >30 minutes discharge planning Discharge Instructions Discharge Diet: No Restrictions Activity as Tolerated: Yes Discharge Physical Examination Vital Signs Vital Signs Date Time Temp Pulse Resp B/P (MAP) Pulse Ox O2 Delivery O2 Flow Rate FiO2 04/16/22 11:15 36.0 65 18 99/64 (76) 94 Room Air General Appearance: No Apparent Distress, Chronically ill, Cachetic Respiratory: Lungs Clear, No Respiratory Distress Cardiovascular: Regular Rate, Rhythm, No Murmur Gastrointestinal: Normal Bowel Sounds, Soft Extremity: Normal Inspection, No Pedal Edema Skin: Ecchymosis (right eye, forehead laceration) Neurologic/Psychiatric: Alert, Normal Mood/Affect Allergies: Coded Allergies: No Known Drug Allergies (Unverified , 02/07/20) Copy Copies To 1: ROBIN CALIX MD Discharge Summary Date of Admission Apr 15, 2022 at 11:37 Date of Discharge Discharge Date: Apr 16, 2022 Discharge Time: 12:00 Admission Diagnosis Fall Comfort Measures/ End of Life Care: Hospice Care (Home) Discharge Diagnosis Fall Forehead laceration Chronic anticoagulation Anemia History of CVA with residual deficits Debility Severe protein calorie malnutrition Cachexia Tobacco abuse HTN HLD BPH Goals of care discussion (1) Fall Status: Acute Qualifiers: Qualified Codes: W19.XXXA - Unspecified fall, initial encounter (2) Forehead laceration Status: Acute Qualifiers: Qualified Codes: S01.81XA - Laceration without foreign body of other part of head, initial encounter (3) Chronic anticoagulation Status: Chronic (4) Anemia Status: Acute (5) History of cerebrovascular accident (CVA) with residual deficit Status: Chronic (6) HTN (hypertension) Status: Chronic (7) HLD (hyperlipidemia) Status: Chronic (8) CAD (coronary artery disease) Status: Chronic (9) BPH (benign prostatic hyperplasia) Status: Chronic (10) Tobacco abuse Status: Chronic (11) Cachexia Status: Acute (12) Severe protein-calorie malnutrition Status: Acute (13) Goals of care, counseling/discussion Status: Acute STEPHANI MATHIAS MD Apr 16, 2022 11:33
[2022-04-16 12:53] VITALS: BP 99/64
== END 2022-04-16 10:36 | disposition hospice, home (50) ==
LOC: EDUNIT# 08:53 → ER 08:56 → UNDOADMOB 11:37 → 4TH 11:37 → UNDODISOB 04-16 10:36
PROVIDERS: ADMIT Internal Medicine; ATTEND Internal Medicine
DX: S01.81XA Laceration without foreign body of other part of head, initial encounter (principal); W19.XXXA Unspecified fall, initial encounter; Z79.01 Long term (current) use of anticoagulants; D64.9 Anemia, unspecified; I10 Essential (primary) hypertension; E78.5 Hyperlipidemia, unspecified; I25.10 Atherosclerotic heart disease of native coronary artery without angina pectoris; N40.0 Benign prostatic hyperplasia without lower urinary tract symptoms; F17.210 Nicotine dependence, cigarettes, uncomplicated; E43 Unspecified severe protein-calorie malnutrition; Z86.73 Personal history of transient ischemic attack (TIA), and cerebral infarction without residual deficits; Z79.899 Other long term (current) drug therapy
CPT/HCPCS: 70450; 72125; 80048 ×2; 83735; 85014; 85018; 85025; 96360; 96361; 97162; 97165; 99284; G0378; 36415